=== PATIENT | female | born 1930 | race Caucasian/White ===

== ENCOUNTER 2017-10-21 15:10 | Inpatient (IN) | payer MEDICARE, BC ==
[~2017-10-21] VITALS: Ht 162.6 cm; Wt 48.1 kg
[~2017-10-21 15:10] MED LIST: ASPI-495 PO; CLOP75TA15 PO; ESCI10TA PO; FEXO180T PO; FLUO0.2535 PO; IRBE75TA11 PO; LANS30CA54 PO; LEVE250T2 PO; LEVO50TA PO; POTA10CA14 PO; SIMV20TA6 PO; SOTA80TA PO
--- NOTE | 2017-10-21 15:11 | NUR ---
[id number] FROM HOME: SOB, COPD EXACERBATION, HYPOXIA. 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 PATIENT IS A/O X1. PATIENT PLACED ON NON-REBREATHER MASK, 15L/MIN. NAD, VITALS STABLE. SAFETY AND COMFORT MEASURES IN PLACE. AWAITING MD ORDERS.
--- NOTE | 2017-10-21 15:15 | NUR ---
NEW IV STARTED ON LAC, 20 G.
--- NOTE | 2017-10-21 15:20 | NUR ---
SECOND IV STARTED ON RFA, 20 G.
[2017-10-21] MEDS ORDERED: POTA10TA15 PO (15:24)
[2017-10-21] MEDS ORDERED: FURO20TA4 PO (15:24)
[2017-10-21] MEDS ORDERED: BUDE0.253 IH (15:24)
[2017-10-21 16:12] LABS: MONOCYTES # (AUTO) 0.8 /CMM (0.1-1.30); NEUTROPHILS # (AUTO) 7.5 /CMM (1.8-8.9)
[2017-10-21 16:15] LABS: BASOPHILS # (AUTO) 0.1 /CMM (0.0-0.2); BASOPHILS % (AUTO) 0.5 % (0.0-2.0); EOSINOPHILS # (AUTO) 0.9 /CMM (0.0-0.7); EOSINOPHILS % (AUTO) 9.1 % (0.0-6.0); HEMATOCRIT 45 % (33-45); HEMOGLOBIN 15.5 g/dL (11.5-14.8); LYMPHOCYTES # (AUTO) 0.7 /CMM (0.8-4.8); LYMPHOCYTES % (AUTO) 6.9 % (20.0-44.0); MEAN CORPUSCULAR HEMOGLOBIN 31 PG (26.0-33.0); MEAN CORPUSCULAR HGB CONC 34 g/dl (31.0-36.0); MEAN CORPUSCULAR VOLUME 89 fL (82-100); MONOCYTES % (AUTO) 7.9 % (2.0-12.0); NEUTROPHILS % (AUTO) 75.6 % (43.0-81.0); PLATELET COUNT (AUTO) 179 /CMM (150-450); RDW COEFFICIENT OF VARIATION 13.7 (11.5-15.0); RED BLOOD CELL COUNT(AUTO) 5.05 MIL/uL (4.0-5.2)
[2017-10-21 16:20] LABS: CALCIUM, SERUM 9.6 mg/dL (8.5-10.1); CARBON DIOXIDE 28 mmol/L (21-32); CHLORIDE 96 mmol/L (98-107); GLUCOSE 148 mg/dL (74-106); POTASSIUM 4.5 mmol/L (3.5-5.1); SODIUM SERUM 129 mmol/L (136-145); UREA NITROGEN, BLOOD 22 mg/dL (7-18)
[2017-10-21 16:24] LABS: INR 1.06 (0.85-1.15)
--- NOTE | 2017-10-21 16:30 | NUR ---
PT PUT ON NASAL CANNULA 2LPM. VSS, SATURATING 98%, TOLERATING WELL.
[2017-10-21 16:38] LABS: ALANINE AMINOTRANSFERASE 19 U/L (12-78); ALBUMIN 2.8 g/dL (3.4-5.0); ALKALINE PHOSPHATASE 232 U/L (46-116); ASPARTATE AMINOTRANSFERASE 38 U/L (15-37); B-TYPE NATRIURETIC PEPTIDE 4594 PG/ML (0-125); BILIRUBIN,DIRECT 0.1 mg/dL (0.0-0.2); BILIRUBIN,TOTAL 0.4 mg/dL (0.2-1.0); TOTAL PROTEIN, SERUM 7.6 g/dL (6.4-8.2)
[2017-10-21 16:45] LABS: TROPONIN I 0.019 ng/mL (0.00-0.056)
--- NOTE | 2017-10-21 16:45 | NUR ---
CALLED NURSING SUP. FOR SARITHA BED
--- NOTE | 2017-10-21 16:54 | NUR ---
URINE OBTAINED AND SENT TO LAB.
[2017-10-21] MEDS ORDERED: FUROSEMIDE 40 MG/4 ML VIAL ONE (16:56)
[2017-10-21] MEDS ORDERED: ASPIRIN 325 MG TABLET ONE (16:57)
[2017-10-21] MEDS ORDERED: ASPIRIN 325 MG TABLET PO ONE (17:00)
[2017-10-21] MEDS ORDERED: FUROSEMIDE 40 MG/4 ML VIAL IV ONE (17:00)
--- NOTE | 2017-10-21 17:04 | NUR ---
OSCAR PAGED, SKI BASE TRIMMER
--- NOTE | 2017-10-21 17:10 | NUR ---
PATIENT HAS TAKEN ASPIRIN THIS MORNING. MD INFORMED, STATED TO CANCEL ORDER OF ASPIRIN.
[2017-10-21 17:14] LABS: APPEARANCE,URINE Clear (CLEAR); BILIRUBIN,URINE Negative (NEGATIVE); BLOOD, URINE Large Ery/uL (NEGATIVE); COLOR,URINE Yellow (YELLOW); KETONES,URINE Negative (NEGATIVE); NITRITE, URINE Negative (NEGATIVE); PROTEIN,URINE 100 mg/dl (NEGATIVE); UGLUCOSE Negative (NEGATIVE); UROBILINOGEN,URINE 0.2 EU/dL (0.2)
[2017-10-21 17:15] LABS: LEUKOCYTE ESTERASE ,URINE Negative (NEGATIVE)
[2017-10-21 17:31] LABS: BACTERIA,URINE Few /HPF (None Seen); RBC,URINE 21-50 /HPF (0-2); SQUAMOUS EPITHELIAL CELL,UR Few /HPF (None Seen); WBC,URINE NONE SEEN /HPF (0-3)
[2017-10-21] MEDS ORDERED: Z GUARD REMEDY 2 OZ OINT TP PRN (18:00)
[2017-10-21] MEDS ORDERED: ZOLPIDEM TARTRATE 5 MG TABLET PO PRN (18:00)
[2017-10-21] MEDS ORDERED: SIMVASTATIN 20 MG TABLET PO SCH (18:00)
[2017-10-21] MEDS ORDERED: POTASSIUM CHLORIDE 10 MEQ TABLET.SA PO SCH (18:00)
[2017-10-21] MEDS ORDERED: MAG HYDROX/AL HYDROX/SIMETH 30 ML UDC PO PRN (18:00)
[2017-10-21] MEDS ORDERED: BUDESONIDE RESPULE INH 0.25 MG/2 ML AMPUL.NEB IH PRN (18:00)
[2017-10-21] MEDS ORDERED: HYDROCODONE/APAP 5/325MG 1 EACH TABLET PO PRN (18:00)
[2017-10-21] MEDS ORDERED: ONDANSETRON HCL/PF 4 MG/2 ML VIAL IVP PRN (18:00)
[2017-10-21] MEDS ORDERED: ACETAMINOPHEN 325 MG TABLET PO PRN (18:00)
[2017-10-21] MEDS ORDERED: MAGNESIUM HYDROXIDE 30 ML UDC PO PRN (18:00)
--- NOTE | 2017-10-21 18:00 | NUR ---
RN NOTES RECEIVED PATIENT FROM ER. PATIENT AWAKE RESPONSIVE, OPENS EYE, NON VERBAL. A/OX1. NO ACUTE DISTRESS, NO SOB NOTED. VS WNL; LA=051/67, T=97.3, R=20, SPO2 98% ON 2LPM O2 VIA NC, ON TELEMONITOR AFIB HR=94. IV SITE INTACT AND PATENT. KEPT PATIENT SAFE AND COMFORTABLE. FAMILY AT BEDSIDE. BED IN LOW/LOCKED POSITION, SIDERAILS UPX2, SEMIFOWLER'S, CALL LIGHT IN REACH. WILL ENDORSED TO NIGHT RN FOR JONAS.
[2017-10-21 18:13] LABS: BAND % (MANUAL) 3 % (0.0-5.0); EOSINOPHILS % (MANUAL) 8 % (0-4); LYMPHOCYTES % (MANUAL) 8 % (16-48); MONOCYTES % (MANUAL) 6 % (0-11.0); NEUTROPHILS % (MANUAL) 75 (42-76)
--- NOTE | 2017-10-21 18:15 | NUR ---
RN NOTES PER FAMILY REQUEST, GIVE PM MEDICATIONS LATER IN THE EVENING WHEN THEY FEED THEM DINNER. WILL INFORM NIGHT RN.
[2017-10-21] MEDS ORDERED: POTASSIUM CHLORIDE 20 MEQ POWDER PACKET PO SCH ×2 (19:00→20:00)
--- NOTE | 2017-10-21 19:00 | NUR ---
RN CLOSING NOTES PATIENT IN BED RESTING. FAMILY AT BEDSIDE. NO ACUTE DISTRESS, NO SOB NOTED. ALL NEEDS ATTENDED AND PROVIDED. KEPT PATIENT SAFE AND COMFORTABLE. BED IN LOW/LOCKED POSITION, SIDERAILS UPX2, CALL LIGHT IN REACH. ENDORSED TO NIGHT RN FOR JONAS.
--- NOTE | 2017-10-21 19:30 | NUR ---
TELE OPENING NOTES RECEIVED REPORT FROM BENNETT PATTERSON. PATIENT A/O X1, NON-VERBAL. BREATHING EVEN & UNLABORED, TOLERATING O2 2L VIA NC. NO S/S OF RESPIRATORY DISTRESS. PULSES PRESENT. ON TELE W/ A-FIB & PVC. SKIN WARM, DRY & INTACT W/ NO SKIN ISSUES IDENTIFIED. LEFT AC IV #20 INTACT & PATENT W/ DRESSING CDI, SALINE LOCKED. NO S/S OF PAIN OR DISCOMFORT @ THIS TIME. PATIENT RESTING COMFORTABLY IN BED. SAFETY MEASURES IN PLACE W/ SIDE RAILS UP, BED LOCKED & IN LOWEST POSITION & BED ALARM ON. FAMILY & PRIVATE CAREGIVER @ BEDSIDE. ALL ADMISSION ORDERS REVIEWED. WILL CONTINUE TO MONITOR.
[2017-10-21 20:00] VITALS: BP 94/67
[2017-10-21] MEDS ORDERED: POTASSIUM CHLORIDE 20 MEQ POWDER PACKET ONE (20:06)
[2017-10-21] MEDS ORDERED: SIMVASTATIN 20 MG TABLET ONE (20:06)
[2017-10-21] MEDS ORDERED: SOTALOL HCL 80 MG TABLET ONE (20:06)
[2017-10-21] MEDS ORDERED: LEVETIRACETAM (250 MG) 250 MG TABLET PO ONE (20:06)
[2017-10-21] MEDS: SIMVASTATIN 20 MG TABLET PO SCH (20:14)
[2017-10-21] MEDS: LEVETIRACETAM (250 MG) 250 MG TABLET PO SCH (20:14)
[2017-10-21] MEDS: SOTALOL HCL 80 MG TABLET PO SCH (20:17)
--- NOTE | 2017-10-21 20:50 | NUR ---
RN NOTES ASKED DR NORRIS FOR NEW ORDER TO INSERT PALOMINO CATH IN ORDER TO MONITOR STRICT I&O. PER , OKAY TO INSERT. NEW ORDER CARRIED OUT.
--- NOTE | 2017-10-21 21:28 | NUR ---
RN NOTE RECEIVED CALL FROM PATIENT'S DAUGHTER, LEIDY, CLARIFYING THE PATIENT'S CODE STATUS PER THE PATIENT'S ADVANCE DIRECTIVE. ACCORDING TO DTR, LEIDY, PATIENT IS OKAY TO BE RESUSCITATED HOWEVER NO RESPIRATORS. READ BACK TO LEIDY, CONFIRMED BY PRIMARY NURSE. REMINDED LEIDY TO BRING A COPY OF THE ADVANCE DIRECTIVE IN AM, VERBALIZED UNDERSTANDING. DR. NORRIS MADE AWARE. CODE STATUS ORDERED.
--- NOTE | 2017-10-21 22:00 | NUR ---
RN NOTES SUCCESSFULLY INSERTED PALOMINO CATH 16FR. PATIENT TOLERATED WELL.
[2017-10-22] VITALS: BP 137/83
[2017-10-22 04:00] VITALS: BP 100/63
[2017-10-22 06:42] LABS: BASOPHILS % (AUTO) 0.3 % (0.0-2.0); EOSINOPHILS # (AUTO) 0.3 /CMM (0.0-0.7); HEMATOCRIT 40 % (33-45); HEMOGLOBIN 13.5 g/dL (11.5-14.8); LYMPHOCYTES # (AUTO) 0.8 /CMM (0.8-4.8); LYMPHOCYTES % (AUTO) 14.7 % (20.0-44.0); MEAN CORPUSCULAR HEMOGLOBIN 30 PG (26.0-33.0); MEAN CORPUSCULAR HGB CONC 34 g/dl (31.0-36.0); MEAN CORPUSCULAR VOLUME 90 fL (82-100); MONOCYTES # (AUTO) 0.8 /CMM (0.1-1.30); NEUTROPHILS # (AUTO) 3.5 /CMM (1.8-8.9); PLATELET COUNT (AUTO) 185 /CMM (150-450); RED BLOOD CELL COUNT(AUTO) 4.45 MIL/uL (4.0-5.2); WHITE BLOOD COUNT (AUTO) 5.4 K/uL (4.3-11.0)
[2017-10-22 07:04] LABS: CALCIUM, SERUM 9.2 mg/dL (8.5-10.1); CARBON DIOXIDE 27 mmol/L (21-32); CHLORIDE 97 mmol/L (98-107); CREATININE 0.8 mg/dL (0.6-1.3); GLUCOSE 92 mg/dL (74-106); PHOSPHORUS 2.8 mg/dL (2.5-4.9); POTASSIUM 4.4 mmol/L (3.5-5.1); SODIUM SERUM 132 mmol/L (136-145); UREA NITROGEN, BLOOD 24 mg/dL (7-18)
--- NOTE | 2017-10-22 07:18 | NUR ---
VOCATIONAL CASE MANAGER NOTES RECEIVED PT ON BED SLEEPING WITH CAREGIVER ALERT ORIENTEDX2. ON NC 2L SATURATING WELL. NO SIGN OF RESPI DISTRESS. ON TELE MONITOR A FIB. IV ACCESS LAC AND LFA #20 SL NO REDNESS OR PAIN. HEAD OF BED ELEVATED. SIDE RAILS UP. CALL LIGHT IS PLACED WITHIN REACH. WILL CONTINUE TO MONITOR PT CLOSELY.
[2017-10-22 07:41] LABS: CHOLESTEROL 94 mg/dL (<200); HDL CHOLESTEROL 34 mg/dL (40-60); LDL 45 mg/dL (0-99); TRIGLYCERIDES 80 mg/dL (30-150)
[2017-10-22 08:00] VITALS: BP 105/60
[2017-10-22] MEDS: FUROSEMIDE 40 MG/4 ML VIAL IV SCH ×2 (08:26→17:15)
[2017-10-22] MEDS: LEVOTHYROXINE SODIUM 50 MCG TABLET PO SCH (08:27)
[2017-10-22] MEDS: PANTOPRAZOLE 40 MG TABLET.DR PO SCH (08:27)
[2017-10-22] MEDS: ASPIRIN EC 81 MG TABLET.DR PO SCH (08:27)
[2017-10-22] MEDS: LEVETIRACETAM (250 MG) 250 MG TABLET PO SCH ×2 (08:27→17:17)
[2017-10-22] MEDS: SOTALOL HCL 80 MG TABLET PO SCH ×2 (08:30→17:17)
[2017-10-22] MEDS: CLOPIDOGREL BISULFATE 75 MG TABLET PO SCH (08:30)
[2017-10-22] MEDS ORDERED: LEVETIRACETAM (250 MG) 250 MG TABLET PO SCH (09:00)
[2017-10-22] MEDS ORDERED: PNEUMOCOCCAL 23-VAL P-SAC VAC 0.5 ML VIAL SQ ONE (09:00)
[2017-10-22] MEDS ORDERED: SOTALOL HCL 80 MG TABLET PO SCH (09:00)
[2017-10-22 09:55] LABS: EOSINOPHILS % (MANUAL) 5 % (0-4); LYMPHOCYTES % (MANUAL) 10 % (16-48); MONOCYTES % (MANUAL) 13 % (0-11.0); NEUTROPHILS % (MANUAL) 72 (42-76)
--- NOTE | 2017-10-22 10:24 | NUR ---
MS RN NOTES PT GIVEN PNEUMONIA VACCINE PER DAUGHTERS REQUEST
[2017-10-22 16:00] VITALS: BP 99/63
--- NOTE | 2017-10-22 16:00 | NUR ---
MS RN NOTES PER DOCTOR ANDONIAN, TRY TO TITRATE OXYGEN IF TOLERATED BY THE PT.
[2017-10-22] MEDS: POTASSIUM CHLORIDE 10 MEQ TABLET.SA PO SCH (17:16)
[2017-10-22] MEDS: SIMVASTATIN 20 MG TABLET PO SCH (17:16)
--- NOTE | 2017-10-22 18:50 | NUR ---
MS RN NOTES NO ACUTE CHANGES NOTED DURING THE SHIFT. DUE MEDS GIVEN. PROVIDED COMFORT AND SAFETY. WILL ENDORSED TO THE PM NURSE FOR JONAS.
--- NOTE | 2017-10-22 19:50 | NUR ---
MS RN NOTE: PATIENT RESTING IN BED, NO ACUTE DISTRESS NOTED, CAREGIVER AT BEDSIDE. BREATHING EVEN AND UNLABORED, NO SOB NOTED. IV TO LAC AND LFA IN PLACE. PALOMINO CATHETER IN PLACE, DRAINING CLEAR YELLOW URINE. BED LOCKED AND IN LOWEST POSITION, CALL LIGHT IN REACH. WILL CONTINUE TO MONITOR.
[2017-10-22 20:00] VITALS: BP 101/54
--- NOTE | 2017-10-22 21:00 | NUR ---
MS RN NOTE: PATIENT TO BE TITRATE OFF OXYGEN TOLERATED. PATIENT CURRENTLY AT 2 LPM VIA NC WITH 02 SAT AT 96%. DECREASED OXYGEN TO 1 LPM. CG AT BEDSIDE, INFORMED TO MONITOR FOR ANY DISTRESS AND INFORM NURSE IF ANY DISTRESS OR SOB NOTED. WILL CONTINUE TO MONITOR
--- NOTE | 2017-10-23 00:30 | NUR ---
MS RN NOTE: PATIENT O2 SAT 94% ON OXYGEN 1 LPM VIA NC, NO ACUTE DISTRESS NOTED. BREATHING EVEN AND UNLABORED. PATIENT TAKEN OFF OXYGEN THIS TIME AND WILL CONTINUE TO MONITOR O2 SAT.
--- NOTE | 2017-10-23 04:30 | NUR ---
MS RN NOTE: PATIENT O2 SAT 92% ON RA, BREATHING EVEN AND UNLABORED, NO SOB NOTED. CONTINUE TO MONITOR.
--- NOTE | 2017-10-23 06:20 | NUR ---
MS RN NOTE: PATIENT RESTING IN BED, NO ACUTE DISTRESS NOTED, CAREGIVER AT BEDSIDE. BREATHING EVEN AND UNLABORED, NO SOB NOTED. 02 SAT STABLE ON RA AT 92%. IV TO LAC AND LFA IN PLACE. PALOMINO CATHETER IN PLACE, DRAINED 625ML CLEAR YELLOW URINE. BED LOCKED AND IN LOWEST POSITION, CALL LIGHT IN REACH. WILL CONTINUE TO MONITOR.
[2017-10-23 06:55] LABS: CALCIUM, SERUM 9.6 mg/dL (8.5-10.1); CARBON DIOXIDE 31 mmol/L (21-32); CHLORIDE 97 mmol/L (98-107); GLUCOSE 92 mg/dL (74-106); POTASSIUM 4.5 mmol/L (3.5-5.1); SODIUM SERUM 133 mmol/L (136-145); UREA NITROGEN, BLOOD 28 mg/dL (7-18)
--- NOTE | 2017-10-23 07:12 | NUR ---
MS RN NOTES RECEIVED PT ON BED SLEEPING. ALERT ORIENTED X1. ON ROOM AIR SATURATING AROUND 92%. IV ACCESS ON LAC AND LFA 320 PATENT NO SIGN OF PAIN OR REDNESS. NO SIGN OF RESPIRATORY DISTRESS. HEAD OF BED ELEVATED. SIDE RAILS UP. CALL LIGHT IS WITHIN REACH. WILL CONTINUE TO MONITOR PT CLOSELY.
[2017-10-23 08:00] VITALS: BP 116/71
[2017-10-23 08:01] LABS: BASOPHILS % (AUTO) 0.3 % (0.0-2.0); EOSINOPHILS # (AUTO) 0.4 /CMM (0.0-0.7); EOSINOPHILS % (AUTO) 5.7 % (0.0-6.0); HEMATOCRIT 41 % (33-45); HEMOGLOBIN 13.8 g/dL (11.5-14.8); LYMPHOCYTES % (AUTO) 15.5 % (20.0-44.0); MEAN CORPUSCULAR HEMOGLOBIN 30 PG (26.0-33.0); MEAN CORPUSCULAR HGB CONC 33 g/dl (31.0-36.0); MEAN CORPUSCULAR VOLUME 91 fL (82-100); MONOCYTES % (AUTO) 15.4 % (2.0-12.0); NEUTROPHILS % (AUTO) 63.1 % (43.0-81.0); PLATELET COUNT (AUTO) 155 /CMM (150-450); RDW COEFFICIENT OF VARIATION 15.1 (11.5-15.0); RED BLOOD CELL COUNT(AUTO) 4.57 MIL/uL (4.0-5.2); WHITE BLOOD COUNT (AUTO) 6.3 K/uL (4.3-11.0)
[2017-10-23] MEDS: LEVOTHYROXINE SODIUM 50 MCG TABLET PO SCH (08:03)
[2017-10-23] MEDS: SOTALOL HCL 80 MG TABLET PO SCH ×2 (08:03→17:30)
[2017-10-23] MEDS: ASPIRIN EC 81 MG TABLET.DR PO SCH (08:03)
[2017-10-23] MEDS: CLOPIDOGREL BISULFATE 75 MG TABLET PO SCH (08:03)
[2017-10-23] MEDS: FUROSEMIDE 40 MG/4 ML VIAL IV SCH ×2 (08:04→17:30)
[2017-10-23] MEDS: PANTOPRAZOLE 40 MG TABLET.DR PO SCH (08:04)
[2017-10-23] MEDS: LEVETIRACETAM (250 MG) 250 MG TABLET PO SCH ×2 (08:04→17:28)
[2017-10-23 12:02] LABS: BAND % (MANUAL) 1 % (0.0-5.0); EOSINOPHILS % (MANUAL) 1 % (0-4); LYMPHOCYTES % (MANUAL) 8 % (16-48); MONOCYTES % (MANUAL) 8 % (0-11.0); NEUTROPHILS % (MANUAL) 82 (42-76)
[2017-10-23 16:00] VITALS: BP 103/74
[2017-10-23] MEDS: SIMVASTATIN 20 MG TABLET PO SCH (17:28)
[2017-10-23] MEDS: POTASSIUM CHLORIDE 10 MEQ TABLET.SA PO SCH (17:28)
--- NOTE | 2017-10-23 19:01 | NUR ---
MS RN NOTES NO ACUTE CHANGES NOTED DURING THE SHIFT. DUE MEDS GIVEN. PROVIDED COMFORT AND SAFETY. WILL ENDORSE TO THE PM NURSE FOR JONAS.
[2017-10-23 20:00] VITALS: BP 151/64
[2017-10-23 22:58] VITALS: BP 103/74
[2017-10-24 04:12] VITALS: BP 151/64
--- NOTE | 2017-10-24 04:47 | NUR ---
REMAINED IN BED THIS 12 HOURS PRIVATE FISHING ROD ASSEMBLER AT THE BEDS SIDE THROU THE NIGHT. REPOSITIONES Q3 HRS. SLEPT THRU THE NIGHT. SWALLOWS W/O PROBLEMS WHEN WATER OFFERED NO SOB THHIS 12 HOURSSATS WHEN ASLEEP AT 92% ROOM AIR HOB P 30 DEGREES
[2017-10-24 06:38] LABS: CALCIUM, SERUM 9.6 mg/dL (8.5-10.1); CARBON DIOXIDE 29 mmol/L (21-32); CHLORIDE 96 mmol/L (98-107); GLUCOSE 94 mg/dL (74-106); POTASSIUM 3.7 mmol/L (3.5-5.1); SODIUM SERUM 134 mmol/L (136-145); UREA NITROGEN, BLOOD 27 mg/dL (7-18)
[2017-10-24 06:41] LABS: BASOPHILS % (AUTO) 0.5 % (0.0-2.0); EOSINOPHILS # (AUTO) 0.4 /CMM (0.0-0.7); EOSINOPHILS % (AUTO) 6.6 % (0.0-6.0); HEMATOCRIT 43 % (33-45); HEMOGLOBIN 14.8 g/dL (11.5-14.8); LYMPHOCYTES % (AUTO) 14.3 % (20.0-44.0); MEAN CORPUSCULAR HEMOGLOBIN 31 PG (26.0-33.0); MEAN CORPUSCULAR HGB CONC 35 g/dl (31.0-36.0); MEAN CORPUSCULAR VOLUME 90 fL (82-100); MONOCYTES # (AUTO) 0.9 /CMM (0.1-1.30); MONOCYTES % (AUTO) 13.2 % (2.0-12.0); NEUTROPHILS # (AUTO) 4.4 /CMM (1.8-8.9); NEUTROPHILS % (AUTO) 65.4 % (43.0-81.0); PLATELET COUNT (AUTO) 187 /CMM (150-450); RDW COEFFICIENT OF VARIATION 14.8 (11.5-15.0); RED BLOOD CELL COUNT(AUTO) 4.77 MIL/uL (4.0-5.2); WHITE BLOOD COUNT (AUTO) 6.7 K/uL (4.3-11.0)
--- NOTE | 2017-10-24 07:10 | NUR ---
RN INITIAL NOTES: REC'D PT AWAKE ON BED, NOT IN ANY DISTRESS, A/O X 1. ON ROOM AIR, NO SOB NOTED. HAS 2 IV ACCESS: L AC G20 AND R FA G20, BOTH FLUSHING WELL, NO S/SX OF INFECTION/INFILTRATION NOTED. HAS FC PATENT & INTACT. HAS CAREGIVER AT BEDSIDE. PROVIDED COMFORT & SAFETY MEASURES. BED KEPT LOW & IN LOCKED POS. CALL LIGHT PLACED W/IN REACH. WILL CONTINUE TO MONITOR & ATTEND PT NEEDS.
--- NOTE | 2017-10-24 07:40 | NUR ---
RN NOTES: CLEARED PINK ALERTS ON EMAR FOR PT'S SAFETY. MEDICATIONS NON ADMINISTERED.
[2017-10-24 08:00] VITALS: BP 100/56
[2017-10-24] MEDS: CLOPIDOGREL BISULFATE 75 MG TABLET PO SCH (08:11)
[2017-10-24 08:13] VITALS: BP 100/56
[2017-10-24] MEDS: PANTOPRAZOLE 40 MG TABLET.DR PO SCH (08:13)
[2017-10-24] MEDS: LEVOTHYROXINE SODIUM 50 MCG TABLET PO SCH (08:13)
[2017-10-24] MEDS: SOTALOL HCL 80 MG TABLET PO SCH (08:13)
[2017-10-24] MEDS: FUROSEMIDE 40 MG/4 ML VIAL IV SCH (08:14)
[2017-10-24] MEDS: ASPIRIN EC 81 MG TABLET.DR PO SCH (08:14)
[2017-10-24] MEDS: LEVETIRACETAM (250 MG) 250 MG TABLET PO SCH (08:14)
--- NOTE | 2017-10-24 15:40 | NUR ---
SCIENTIST/ENGINEER NOTES: PT DC'D TO HOME W/ HOME HEALTH CARE ORDERED. DC DOCUMENTS EXPLAINED AND PROVIDED TO THE PT'S DTR W/ VERBALIZATION OF UNDERSTANDING. IV LINE ACCESS REMOVED, PRESSURE DRESSING APPLIED, NO SIGN OF INFECTION NOTED. FC REMOVED REQUESTED BY DTR AND ORDERED BY DISPENSING LEAD. SKIN IS INTACT. PER DTR, SHE HAS ALL THE BELONGINGS WITH THEM. CHU RADHA WAS ABLE TO SPEAK W/ THE DTR. PT LEFT IN STABLE CONDITION VIA GURNEY, PICKED UP BY [facility] EMT. NO CONCERN/S IDENTIFIED AT THIS TIME.
== END 2017-10-24 15:27 | disposition home or self-care (01) | DRG 291 ==
LOC: ER 15:11 → TELE-TD 17:25 → TELE1 18:03 → MEDSG1 10-22 08:23
PROVIDERS: ADMIT Family Medicine; ATTEND Family Medicine
DX: I11.0 Hypertensive heart disease with heart failure (principal); J96.00 Acute respiratory failure, unspecified whether with hypoxia or hypercapnia; E87.2 Acidosis; E44.0 Moderate protein-calorie malnutrition; D68.59 Other primary thrombophilia; E87.1 Hypo-osmolality and hyponatremia; E86.1 Hypovolemia; I69.351 Hemiplegia and hemiparesis following cerebral infarction affecting right dominant side; I48.91 Unspecified atrial fibrillation; E03.9 Hypothyroidism, unspecified; E78.5 Hyperlipidemia, unspecified; I25.10 Atherosclerotic heart disease of native coronary artery without angina pectoris; I50.9 Heart failure, unspecified; Z95.1 Presence of aortocoronary bypass graft; Z90.710 Acquired absence of both cervix and uterus; Z87.891 Personal history of nicotine dependence; Z87.11 Personal history of peptic ulcer disease; Z79.899 Other long term (current) drug therapy; Z79.82 Long term (current) use of aspirin; Z88.1 Allergy status to other antibiotic agents; Z88.8 Allergy status to other drugs, medicaments and biological substances; Z85.42 Personal history of malignant neoplasm of other parts of uterus; Z82.49 Family history of ischemic heart disease and other diseases of the circulatory system; Z80.9 Family history of malignant neoplasm, unspecified; R73.9 Hyperglycemia, unspecified; Z66 Do not resuscitate; I50.33 Acute on chronic diastolic (congestive) heart failure; R06.03 Acute respiratory distress
CPT/HCPCS: 36415; 71045-TC; 80048-TC; 80061-TC; 80076-TC; 81000-TC; 83605-TC; 83735-TC; 83880; 84100-TC; 84484-TC; 85025-TC; 85730-TC; 87040-TC; 87081-TC; 87086-TC; 87186-TC; 87400; 90732; 93307-TC; A4606; J1940; Z7610

== ENCOUNTER 2017-11-25 21:27 | Inpatient (IN) | payer MEDICARE, BC ==
[~2017-11-25] VITALS: Ht 144.8 cm; Wt 54.9 kg
[~2017-11-25 21:27] MED LIST changes: +BUDE0.253 IH; -ESCI10TA PO; -FEXO180T PO; -FLUO0.2535 PO; +FURO20TA4 PO; -IRBE75TA11 PO; -POTA10CA14 PO; +POTA10TA15 PO
[2017-11-25] MEDS ORDERED: Magnesium 1GM/D5W 100ML PREMIX 200 ML IV ONE ×2 (21:29→22:22)
[2017-11-25] MEDS ORDERED: IPRATROPIUM NEB FS 0.5 MG/2.5 ML AMPUL.NEB NEB ONE (21:30)
[2017-11-25] MEDS ORDERED: ALBUTEROL FS 2.5 MG/3 ML VIAL.NEB NEB ONE (21:30)
[2017-11-25] MEDS ORDERED: methylPREDNISolone SOD SUCC 125 MG/2ML VIAL IV ONE (21:30)
[2017-11-25 21:36] VITALS: BP 107/70
[2017-11-25 21:42] LABS: BASOPHILS % (AUTO) 0.3 % (0.0-2.0); EOSINOPHILS % (AUTO) 0.1 % (0.0-6.0); HEMATOCRIT 42 % (33-45); HEMOGLOBIN 14.3 g/dL (11.5-14.8); LYMPHOCYTES # (AUTO) 0.9 /CMM (0.8-4.8); LYMPHOCYTES % (AUTO) 15.4 % (20.0-44.0); MEAN CORPUSCULAR HEMOGLOBIN 30 PG (26.0-33.0); MEAN CORPUSCULAR HGB CONC 34 g/dl (31.0-36.0); MEAN CORPUSCULAR VOLUME 88 fL (82-100); MONOCYTES # (AUTO) 1.1 /CMM (0.1-1.30); MONOCYTES % (AUTO) 17.9 % (2.0-12.0); NEUTROPHILS # (AUTO) 3.9 /CMM (1.8-8.9); NEUTROPHILS % (AUTO) 66.3 % (43.0-81.0); PLATELET COUNT (AUTO) 150 /CMM (150-450); RDW COEFFICIENT OF VARIATION 15.4 (11.5-15.0); RED BLOOD CELL COUNT(AUTO) 4.78 MIL/uL (4.0-5.2); WHITE BLOOD COUNT (AUTO) 5.9 K/uL (4.3-11.0)
[2017-11-25 22:01] LABS: APPEARANCE,URINE CLOUDY (CLEAR); BILIRUBIN,URINE NEGATIVE (NEGATIVE); BLOOD, URINE 2+ Ery/uL (NEGATIVE); COLOR,URINE YELLOW (YELLOW); KETONES,URINE NEGATIVE (NEGATIVE); LEUKOCYTE ESTERASE ,URINE NEGATIVE (NEGATIVE); NITRITE, URINE NEGATIVE (NEGATIVE); PH,URINE 5.5 (5.0-8.0); PROTEIN,URINE TRACE mg/dl (NEGATIVE); UGLUCOSE NEGATIVE (NEGATIVE); UROBILINOGEN,URINE 0.2 EU/dL (0.2)
[2017-11-25 22:04] LABS: CALCIUM, SERUM 9.8 mg/dL (8.5-10.1); CARBON DIOXIDE 29 mmol/L (21-32); CHLORIDE 90 mmol/L (98-107); CREATININE 0.9 mg/dL (0.6-1.3); GLUCOSE 132 mg/dL (74-106); SODIUM SERUM 128 mmol/L (136-145); UREA NITROGEN, BLOOD 22 mg/dL (7-18)
[2017-11-25 22:07] LABS: TROPONIN I 5.129 ng/mL (0.00-0.056)
[2017-11-25 22:09] LABS: ALANINE AMINOTRANSFERASE 22 U/L (12-78); ALBUMIN 2.7 g/dL (3.4-5.0); ALKALINE PHOSPHATASE 186 U/L (46-116); ASPARTATE AMINOTRANSFERASE 55 U/L (15-37); B-TYPE NATRIURETIC PEPTIDE 27426 PG/ML (0-125); BILIRUBIN,DIRECT 0.2 mg/dL (0.0-0.2); BILIRUBIN,TOTAL 0.6 mg/dL (0.2-1.0); TOTAL PROTEIN, SERUM 7.8 g/dL (6.4-8.2)
[2017-11-25 22:09] LABS: BACTERIA,URINE Moderate /HPF (None Seen); SQUAMOUS EPITHELIAL CELL,UR Moderate /HPF (None Seen)
[2017-11-25 22:12] LABS: INR 1.07 (0.87-1.13)
[2017-11-25 22:22] LABS: LYMPHOCYTES % (MANUAL) 16 % (16-48); MONOCYTES % (MANUAL) 16 % (0-11.0); NEUTROPHILS % (MANUAL) 68 (42-76)
[2017-11-25] MEDS ORDERED: FUROSEMIDE 40 MG/4 ML VIAL ONE (22:22)
[2017-11-25] MEDS ORDERED: ASPIRIN 300 MG/SUPP.RECT RC ONE ×2 (22:23→22:30)
[2017-11-25 22:24] LABS: ABG BASE EXCESS 0.9 mmol/L; ABG OXYGEN SATURATION 98.6 % (92.0-98.5); ABG PCO2 53.8 mmHg (35.0-45.0); ABG PH 7.333 (7.350-7.450); ABG PO2 155.1 mmHg (75.0-100.0); AaDO2 68.2 mmHg; COHb 0.7 % (0.5-1.5); MetHb 0.4 % (0.0-1.5); O2Hb 97.5 % (94.0-97.0); SITE, ABG Right Radial
[2017-11-25] MEDS ORDERED: FUROSEMIDE 40 MG/4 ML VIAL IV ONE (22:30)
[2017-11-25] MEDS ORDERED: ALBUTEROL FS 2.5 MG/3 ML VIAL.NEB ONE (22:46)
[2017-11-25] MEDS ORDERED: IPRATROPIUM NEB FS 0.5 MG/2.5 ML AMPUL.NEB ONE (22:46)
[2017-11-25] MEDS ORDERED: methylPREDNISolone SOD SUCC 125 MG/2ML VIAL ONE (23:32)
[2017-11-26] VITALS (56 sets, daily range): BP systolic 65–155; BP diastolic 15–118
[2017-11-26] MEDS ORDERED: NOREPINEPHRINE 4 MG/4 ML AMPUL IV ONE (00:29)
[2017-11-26] MEDS ORDERED: ENOXAPARIN SODIUM 60 MG/0.6 ML DISP.SYRIN SQ SCH (00:30)
[2017-11-26] MEDS ORDERED: ENOXAPARIN SODIUM 60 MG/0.6 ML DISP.SYRIN SQ ONE (01:03)
[2017-11-26] MEDS ORDERED: NOREPINEPHRINE 16 MG in IV D5W 500 ML IV PRN ×2 (03:00→11:30)
[2017-11-26] MEDS ORDERED: HEPARIN INFUSION/D5W 500 ML IV PRN ×2 (03:00)
[2017-11-26] MEDS ORDERED: ALBUTEROL FS 2.5 MG/0.5 ML VIAL.NEB NEB PRN (03:00)
[2017-11-26] MEDS ORDERED: HEPARIN SODIUM, PORCINE 5000 UNITS/1 ML VIAL IV ONE ×2 (03:00→03:30)
[2017-11-26] MEDS ORDERED: CEFTRIAXONE 1 G VIAL ONE (03:22)
[2017-11-26] MEDS: IV NS 0.9% 1,000 ML IV PRN (03:26)
[2017-11-26] MEDS: CEFTRIAXONE 1 G in IV D5W 50 ML IV SCH (03:27)
[2017-11-26 09:17] LABS: ABG BASE EXCESS 2.3 mmol/L; ABG OXYGEN SATURATION 98.4 % (92.0-98.5); ABG PCO2 40.3 mmHg (35.0-45.0); ABG PH 7.437 (7.350-7.450); ABG PO2 141.2 mmHg (75.0-100.0); AaDO2 97.7 mmHg; COHb 0.3 % (0.5-1.5); MetHb 0.4 % (0.0-1.5); O2Hb 97.7 % (94.0-97.0); SITE, ABG Right Radial; VENT MODE, BG BIPAP 15/5
[2017-11-26 09:21] LABS: BASOPHILS % (AUTO) 0.1 % (0.0-2.0); HEMATOCRIT 44 % (33-45); HEMOGLOBIN 14.6 g/dL (11.5-14.8); LYMPHOCYTES # (AUTO) 0.8 /CMM (0.8-4.8); LYMPHOCYTES % (AUTO) 13.3 % (20.0-44.0); MEAN CORPUSCULAR HEMOGLOBIN 30 PG (26.0-33.0); MEAN CORPUSCULAR HGB CONC 34 g/dl (31.0-36.0); MEAN CORPUSCULAR VOLUME 88 fL (82-100); MONOCYTES # (AUTO) 0.3 /CMM (0.1-1.30); MONOCYTES % (AUTO) 5.1 % (2.0-12.0); NEUTROPHILS # (AUTO) 5.1 /CMM (1.8-8.9); NEUTROPHILS % (AUTO) 81.5 % (43.0-81.0); RDW COEFFICIENT OF VARIATION 15.7 (11.5-15.0); RED BLOOD CELL COUNT(AUTO) 4.93 MIL/uL (4.0-5.2); WHITE BLOOD COUNT (AUTO) 6.3 K/uL (4.3-11.0)
[2017-11-26 09:31] LABS: CALCIUM, SERUM 9.3 mg/dL (8.5-10.1); CARBON DIOXIDE 30 mmol/L (21-32); CHLORIDE 95 mmol/L (98-107); CREATININE 1.1 mg/dL (0.6-1.3); GLUCOSE 143 mg/dL (74-106); POTASSIUM 4.4 mmol/L (3.5-5.1); SODIUM SERUM 134 mmol/L (136-145); UREA NITROGEN, BLOOD 22 mg/dL (7-18)
[2017-11-26 10:32] LABS: PLATELET COUNT (AUTO) 147 /CMM (150-450)
[2017-11-26 12:13] LABS: ABG BASE EXCESS 2.8 mmol/L; ABG OXYGEN SATURATION 96.4 % (92.0-98.5); ABG PCO2 39.1 mmHg (35.0-45.0); ABG PH 7.454 (7.350-7.450); ABG PO2 90.7 mmHg (75.0-100.0); AaDO2 91.7 mmHg; COHb 0.2 % (0.5-1.5); MetHb 0.5 % (0.0-1.5); O2Hb 95.7 % (94.0-97.0); SITE, ABG Right Radial; VENT MODE, BG NASAL CANNULA
[2017-11-26] MEDS: Z GUARD REMEDY 2 OZ OINT TP PRN (17:47)
[2017-11-26] MEDS: ENOXAPARIN SODIUM 60 MG/0.6 ML DISP.SYRIN SQ SCH (21:04)
[2017-11-27] VITALS (14 sets, daily range): BP systolic 109–156; BP diastolic 63–94
[2017-11-27] MEDS: IV NS 0.9% 1,000 ML IV PRN ×2 (00:08→21:45)
[2017-11-27] MEDS: CEFTRIAXONE 1 G in IV D5W 50 ML IV SCH (03:48)
[2017-11-27 05:31] LABS: HEMATOCRIT 37 % (33-45); HEMOGLOBIN 12.6 g/dL (11.5-14.8); LYMPHOCYTES # (AUTO) 0.7 /CMM (0.8-4.8); LYMPHOCYTES % (AUTO) 9.4 % (20.0-44.0); MEAN CORPUSCULAR HEMOGLOBIN 30 PG (26.0-33.0); MEAN CORPUSCULAR HGB CONC 34 g/dl (31.0-36.0); MEAN CORPUSCULAR VOLUME 89 fL (82-100); MONOCYTES # (AUTO) 0.8 /CMM (0.1-1.30); NEUTROPHILS # (AUTO) 5.5 /CMM (1.8-8.9); NEUTROPHILS % (AUTO) 78.6 % (43.0-81.0); PLATELET COUNT (AUTO) 139 /CMM (150-450); RDW COEFFICIENT OF VARIATION 15.4 (11.5-15.0)
[2017-11-27 05:54] LABS: ALANINE AMINOTRANSFERASE 17 U/L (12-78); ALBUMIN 2.2 g/dL (3.4-5.0); ALKALINE PHOSPHATASE 132 U/L (46-116); ASPARTATE AMINOTRANSFERASE 37 U/L (15-37); BILIRUBIN,TOTAL 0.4 mg/dL (0.2-1.0); CALCIUM, SERUM 8.9 mg/dL (8.5-10.1); CARBON DIOXIDE 29 mmol/L (21-32); CHLORIDE 96 mmol/L (98-107); CREATININE 0.9 mg/dL (0.6-1.3); GLUCOSE 90 mg/dL (74-106); MAGNESIUM 2.2 mg/dL (1.8-2.4); POTASSIUM 4.1 mmol/L (3.5-5.1); SODIUM SERUM 132 mmol/L (136-145); TOTAL PROTEIN, SERUM 6.4 g/dL (6.4-8.2); UREA NITROGEN, BLOOD 25 mg/dL (7-18)
[2017-11-27] MEDS ORDERED: CELLULOSE,OXIDIZED 1 EACH EACH MC ONE (06:00)
[2017-11-27 06:04] LABS: TROPONIN I 1.937 ng/mL (0.00-0.056)
[2017-11-27] MEDS ORDERED: CELLULOSE,OXIDIZED 1 EACH EACH MC PRN (06:30)
[2017-11-27] MEDS ORDERED: PANTOPRAZOLE 40 MG TABLET.DR PO ONE (16:30)
[2017-11-27] MEDS: LEVETIRACETAM (250 MG) 250 MG TABLET PO SCH (17:09)
[2017-11-27] MEDS: SIMVASTATIN 20 MG TABLET PO SCH (17:09)
[2017-11-27 18:04] LABS: INR 1.12 (0.87-1.13)
[2017-11-27] MEDS ORDERED: SOTALOL HCL 80 MG TABLET PO SCH (21:00)
[2017-11-27] MEDS: ENOXAPARIN SODIUM 60 MG/0.6 ML DISP.SYRIN SQ SCH (21:00)
[2017-11-27] MEDS: METOPROLOL TARTRATE 25 MG TABLET PO SCH (21:50)
[2017-11-28] VITALS (8 sets, daily range): BP systolic 106–137; BP diastolic 65–86
[2017-11-28] MEDS: CEFTRIAXONE 1 G in IV D5W 50 ML IV SCH (03:49)
[2017-11-28 07:02] LABS: BASOPHILS % (AUTO) 0.1 % (0.0-2.0); EOSINOPHILS % (AUTO) 0.3 % (0.0-6.0); HEMATOCRIT 37 % (33-45); HEMOGLOBIN 12.5 g/dL (11.5-14.8); LYMPHOCYTES # (AUTO) 0.8 /CMM (0.8-4.8); LYMPHOCYTES % (AUTO) 12.7 % (20.0-44.0); MEAN CORPUSCULAR HEMOGLOBIN 30 PG (26.0-33.0); MEAN CORPUSCULAR HGB CONC 34 g/dl (31.0-36.0); MEAN CORPUSCULAR VOLUME 89 fL (82-100); MONOCYTES # (AUTO) 0.9 /CMM (0.1-1.30); MONOCYTES % (AUTO) 14.6 % (2.0-12.0); NEUTROPHILS # (AUTO) 4.3 /CMM (1.8-8.9); NEUTROPHILS % (AUTO) 72.3 % (43.0-81.0); PLATELET COUNT (AUTO) 148 /CMM (150-450); RDW COEFFICIENT OF VARIATION 15.6 (11.5-15.0); RED BLOOD CELL COUNT(AUTO) 4.12 MIL/uL (4.0-5.2)
[2017-11-28 07:14] LABS: CALCIUM, SERUM 9.4 mg/dL (8.5-10.1); CARBON DIOXIDE 29 mmol/L (21-32); CHLORIDE 102 mmol/L (98-107); CREATININE 0.8 mg/dL (0.6-1.3); GLUCOSE 91 mg/dL (74-106); POTASSIUM 3.9 mmol/L (3.5-5.1); SODIUM SERUM 137 mmol/L (136-145); UREA NITROGEN, BLOOD 21 mg/dL (7-18)
[2017-11-28] MEDS: PANTOPRAZOLE 40 MG TABLET.DR PO SCH (07:30)
[2017-11-28] MEDS: LEVOTHYROXINE SODIUM 50 MCG TABLET PO SCH (07:30)
[2017-11-28] MEDS: METOPROLOL TARTRATE 25 MG TABLET PO SCH ×3 (07:54→18:54)
[2017-11-28] MEDS: CLOPIDOGREL BISULFATE 75 MG TABLET PO SCH (07:54)
[2017-11-28] MEDS: ASPIRIN EC 81 MG TABLET.DR PO SCH (07:54)
[2017-11-28] MEDS: LEVETIRACETAM (250 MG) 250 MG TABLET PO SCH ×2 (07:55→17:23)
[2017-11-28 08:10] LABS: INR 1.07 (0.85-1.15)
[2017-11-28] MEDS ORDERED: ANESTHESIA TRAY IN PYXIS 1 EA TRAY MC ONE (09:42)
[2017-11-28] MEDS ORDERED: CLINDAMYCIN 900 MG/6 ML VIAL ONE (10:25)
[2017-11-28] MEDS ORDERED: MEPERIDINE HCL/PF 50 MG/ML DISP.SYRIN ONE (10:54)
[2017-11-28] MEDS: IV NS 0.9% 1,000 ML IV PRN (12:22)
[2017-11-28] MEDS: MORPHINE SULFATE INJ 4 MG/ML DISP.SYRIN IV PRN (14:48)
[2017-11-28] MEDS: SIMVASTATIN 20 MG TABLET PO SCH (17:23)
[2017-11-28] MEDS: ENOXAPARIN SODIUM 30 MG/0.3 ML DISP.SYRIN SQ SCH (21:58)
[2017-11-29] VITALS (7 sets, daily range): BP systolic 101–140; BP diastolic 61–80
[2017-11-29] MEDS: CEFTRIAXONE 1 G in IV D5W 50 ML IV SCH (03:29)
[2017-11-29] MEDS: MORPHINE SULFATE INJ 4 MG/ML DISP.SYRIN IV PRN ×2 (03:32→21:14)
[2017-11-29 07:41] LABS: EOSINOPHILS % (AUTO) 0.1 % (0.0-6.0); HEMATOCRIT 35 % (33-45); HEMOGLOBIN 11.6 g/dL (11.5-14.8); LYMPHOCYTES # (AUTO) 0.6 /CMM (0.8-4.8); LYMPHOCYTES % (AUTO) 8.2 % (20.0-44.0); MEAN CORPUSCULAR HEMOGLOBIN 30 PG (26.0-33.0); MEAN CORPUSCULAR HGB CONC 34 g/dl (31.0-36.0); MEAN CORPUSCULAR VOLUME 90 fL (82-100); MONOCYTES % (AUTO) 13.7 % (2.0-12.0); NEUTROPHILS # (AUTO) 5.9 /CMM (1.8-8.9); PLATELET COUNT (AUTO) 130 /CMM (150-450); RDW COEFFICIENT OF VARIATION 15.5 (11.5-15.0); RED BLOOD CELL COUNT(AUTO) 3.85 MIL/uL (4.0-5.2); WHITE BLOOD COUNT (AUTO) 7.6 K/uL (4.3-11.0)
[2017-11-29 07:57] LABS: CALCIUM, SERUM 8.7 mg/dL (8.5-10.1); CARBON DIOXIDE 26 mmol/L (21-32); CHLORIDE 106 mmol/L (98-107); CREATININE 0.7 mg/dL (0.6-1.3); GLUCOSE 89 mg/dL (74-106); POTASSIUM 4.1 mmol/L (3.5-5.1); SODIUM SERUM 139 mmol/L (136-145); UREA NITROGEN, BLOOD 17 mg/dL (7-18)
[2017-11-29] MEDS: IV NS 0.9% 1,000 ML IV PRN (08:08)
[2017-11-29] MEDS: LEVETIRACETAM (250 MG) 250 MG TABLET PO SCH ×2 (08:09→16:57)
[2017-11-29] MEDS: PANTOPRAZOLE 40 MG TABLET.DR PO SCH (08:09)
[2017-11-29] MEDS: ASPIRIN EC 81 MG TABLET.DR PO SCH (08:09)
[2017-11-29] MEDS: METOPROLOL TARTRATE 25 MG TABLET PO SCH ×2 (08:09→21:14)
[2017-11-29] MEDS: CLOPIDOGREL BISULFATE 75 MG TABLET PO SCH (08:09)
[2017-11-29] MEDS: LEVOTHYROXINE SODIUM 50 MCG TABLET PO SCH (08:09)
[2017-11-29] MEDS: FIBERSOURCE HN 1,000 ML BOTTLE GT PRN (12:10)
[2017-11-29] MEDS: SIMVASTATIN 20 MG TABLET PO SCH (17:00)
[2017-11-29] MEDS: FUROSEMIDE 20 MG TABLET PO SCH (21:14)
[2017-11-29] MEDS: ENOXAPARIN SODIUM 30 MG/0.3 ML DISP.SYRIN SQ SCH (21:15)
[2017-11-29] MEDS ORDERED: METOPROLOL TARTRATE INJ 5 MG/5 ML AMPUL IVP PRN (22:30)
[2017-11-29] MEDS ORDERED: METOPROLOL TARTRATE INJ 5 MG/5 ML AMPUL IVP ONE (22:30)
[2017-11-29] MEDS ORDERED: LORAZEPAM INJ 2 MG/ML VIAL IV PRN (22:30)
[2017-11-30] VITALS: BP 121/82
[2017-11-30] MEDS: CEFTRIAXONE 1 G in IV D5W 50 ML IV SCH (03:20)
[2017-11-30 04:00] VITALS: BP 125/82
[2017-11-30 08:08] VITALS: BP_SYST 110; BP_SYST 122; BP_DIAS 61; BP_DIAS 65
[2017-11-30] MEDS: LEVETIRACETAM (250 MG) 250 MG TABLET PO SCH ×2 (09:15→17:33)
[2017-11-30] MEDS: ASPIRIN EC 81 MG TABLET.DR PO SCH (09:15)
[2017-11-30] MEDS: PANTOPRAZOLE 40 MG/PACK PACK GT SCH (09:15)
[2017-11-30] MEDS: LEVOTHYROXINE SODIUM 50 MCG TABLET PO SCH (09:15)
[2017-11-30] MEDS: FUROSEMIDE 20 MG TABLET PO SCH (09:15)
[2017-11-30] MEDS: CLOPIDOGREL BISULFATE 75 MG TABLET PO SCH (09:15)
[2017-11-30] MEDS: METOPROLOL TARTRATE 25 MG TABLET PO SCH ×2 (09:16→17:33)
[2017-11-30 12:00] VITALS: BP 145/81
[2017-11-30 15:05] LABS: BASOPHILS # (AUTO) 0.1 /CMM (0.0-0.2); BASOPHILS % (AUTO) 0.4 % (0.0-2.0); HEMATOCRIT 40 % (33-45); HEMOGLOBIN 13.2 g/dL (11.5-14.8); LYMPHOCYTES # (AUTO) 0.7 /CMM (0.8-4.8); LYMPHOCYTES % (AUTO) 2.6 % (20.0-44.0); MEAN CORPUSCULAR HEMOGLOBIN 29 PG (26.0-33.0); MEAN CORPUSCULAR HGB CONC 33 g/dl (31.0-36.0); MEAN CORPUSCULAR VOLUME 89 fL (82-100); MONOCYTES # (AUTO) 1.4 /CMM (0.1-1.30); MONOCYTES % (AUTO) 5.4 % (2.0-12.0); NEUTROPHILS # (AUTO) 23.5 /CMM (1.8-8.9); NEUTROPHILS % (AUTO) 91.6 % (43.0-81.0); PLATELET COUNT (AUTO) 149 /CMM (150-450); RDW COEFFICIENT OF VARIATION 15.9 (11.5-15.0); RED BLOOD CELL COUNT(AUTO) 4.48 MIL/uL (4.0-5.2); WHITE BLOOD COUNT (AUTO) 25.7 K/uL (4.3-11.0)
[2017-11-30] MEDS: MEROPENEM 1 G in IV NS 0.9% 100 ML IV SCH (15:27)
[2017-11-30 15:35] LABS: CARBON DIOXIDE 28 mmol/L (21-32); CHLORIDE 107 mmol/L (98-107); CREATININE 0.9 mg/dL (0.6-1.3); GLUCOSE 227 mg/dL (74-106); POTASSIUM 3.4 mmol/L (3.5-5.1); SODIUM SERUM 143 mmol/L (136-145); UREA NITROGEN, BLOOD 19 mg/dL (7-18)
[2017-11-30 16:00] VITALS: BP 126/76
[2017-11-30] MEDS: SIMVASTATIN 20 MG TABLET PO SCH (17:33)
[2017-11-30] MEDS ORDERED: PIPERACILLIN /TAZOBACTAM 3.375 G in IV D5W 50 ML IV SCH (18:00)
[2017-11-30 20:00] VITALS: BP 136/76
[2017-11-30] MEDS: FIBERSOURCE HN 1,000 ML BOTTLE GT PRN (21:40)
[2017-11-30] MEDS: ENOXAPARIN SODIUM 30 MG/0.3 ML DISP.SYRIN SQ SCH (21:42)
[2017-11-30] MEDS ORDERED: POTASSIUM CHLORIDE 20 MEQ TAB.PRT.SR PO ONE (22:30)
[2017-12-01] VITALS: BP 129/74
[2017-12-01] MEDS: METOPROLOL TARTRATE 25 MG TABLET PO SCH ×4 (00:57→18:06)
[2017-12-01] MEDS: MEROPENEM 1 G in IV NS 0.9% 100 ML IV SCH ×2 (02:49→15:00)
[2017-12-01 04:00] VITALS: BP 104/68
[2017-12-01 07:05] LABS: HEMATOCRIT 38 % (33-45); HEMOGLOBIN 12.4 g/dL (11.5-14.8); LYMPHOCYTES # (AUTO) 0.8 /CMM (0.8-4.8); LYMPHOCYTES % (AUTO) 3.4 % (20.0-44.0); MEAN CORPUSCULAR HEMOGLOBIN 30 PG (26.0-33.0); MEAN CORPUSCULAR HGB CONC 33 g/dl (31.0-36.0); MEAN CORPUSCULAR VOLUME 91 fL (82-100); MONOCYTES # (AUTO) 1.9 /CMM (0.1-1.30); MONOCYTES % (AUTO) 8.1 % (2.0-12.0); NEUTROPHILS # (AUTO) 20.5 /CMM (1.8-8.9); NEUTROPHILS % (AUTO) 88.5 % (43.0-81.0); PLATELET COUNT (AUTO) 147 /CMM (150-450); RDW COEFFICIENT OF VARIATION 16.1 (11.5-15.0); RED BLOOD CELL COUNT(AUTO) 4.16 MIL/uL (4.0-5.2); WHITE BLOOD COUNT (AUTO) 23.2 K/uL (4.3-11.0)
[2017-12-01 07:15] LABS: CALCIUM, SERUM 9.3 mg/dL (8.5-10.1); CARBON DIOXIDE 33 mmol/L (21-32); CHLORIDE 107 mmol/L (98-107); CREATININE 0.9 mg/dL (0.6-1.3); GLUCOSE 151 mg/dL (74-106); POTASSIUM 3.9 mmol/L (3.5-5.1); SODIUM SERUM 144 mmol/L (136-145); UREA NITROGEN, BLOOD 21 mg/dL (7-18)
[2017-12-01] MEDS: PANTOPRAZOLE 40 MG/PACK PACK GT SCH (07:42)
[2017-12-01] MEDS: CLOPIDOGREL BISULFATE 75 MG TABLET PO SCH (07:42)
[2017-12-01] MEDS: LEVOTHYROXINE SODIUM 50 MCG TABLET PO SCH (07:42)
[2017-12-01] MEDS: LEVETIRACETAM (250 MG) 250 MG TABLET PO SCH ×3 (07:42→18:05)
[2017-12-01] MEDS: ASPIRIN EC 81 MG TABLET.DR PO SCH (07:42)
[2017-12-01] MEDS: FUROSEMIDE 20 MG TABLET PO SCH (07:44)
[2017-12-01 08:00] VITALS: BP 122/39
[2017-12-01 12:00] VITALS: BP 122/71
[2017-12-01] MEDS ORDERED: DIATR MEGLU/DIATRIZOATE SODIUM 30 ML BOTTLE (GASTROGRAPHIN) ONE (15:11)
[2017-12-01] MEDS: ALBUTEROL FS 2.5 MG/0.5 ML VIAL.NEB NEB PRN ×2 (15:26→22:02)
[2017-12-01] MEDS: IPRATROPIUM NEB FS 0.5 MG/2.5 ML AMPUL.NEB NEB PRN ×2 (15:26→22:02)
[2017-12-01 16:00] VITALS: BP 125/81
[2017-12-01] MEDS: SIMVASTATIN 20 MG TABLET PO SCH ×2 (16:58→18:05)
[2017-12-01] MEDS ORDERED: METOCLOPRAMIDE HCL 10 MG/2 ML VIAL IV SCH (17:30)
[2017-12-01] MEDS: METOCLOPRAMIDE HCL 10 MG TABLET GT SCH (18:05)
[2017-12-01] MEDS ORDERED: FEE PK DOSING 1 MIN EA MC ONE ×2 (19:40→19:49)
[2017-12-01 20:00] VITALS: BP 111/61
[2017-12-01] MEDS: VANCOMYCIN 0.75 GM in IV NS 0.9% 250 ML IV SCH (21:47)
[2017-12-01] MEDS: ENOXAPARIN SODIUM 30 MG/0.3 ML DISP.SYRIN SQ SCH (21:48)
[2017-12-02] VITALS: BP 121/86
[2017-12-02] MEDS: METOPROLOL TARTRATE 25 MG TABLET PO SCH ×3 (00:06→17:27)
[2017-12-02] MEDS: FIBERSOURCE HN 1,000 ML BOTTLE GT PRN (00:20)
[2017-12-02] MEDS: ALBUTEROL FS 2.5 MG/0.5 ML VIAL.NEB NEB PRN (01:12)
[2017-12-02] MEDS: IPRATROPIUM NEB FS 0.5 MG/2.5 ML AMPUL.NEB NEB PRN ×3 (01:12→13:19)
[2017-12-02] MEDS: MEROPENEM 1 G in IV NS 0.9% 100 ML IV SCH ×2 (02:17→16:00)
[2017-12-02] MEDS: METOCLOPRAMIDE HCL 10 MG TABLET GT SCH ×3 (02:17→17:27)
[2017-12-02 04:00] VITALS: BP 109/67
[2017-12-02 07:42] LABS: EOSINOPHILS % (AUTO) 0.1 % (0.0-6.0); HEMATOCRIT 37 % (33-45); HEMOGLOBIN 12.4 g/dL (11.5-14.8); LYMPHOCYTES # (AUTO) 0.7 /CMM (0.8-4.8); LYMPHOCYTES % (AUTO) 3.5 % (20.0-44.0); MEAN CORPUSCULAR HEMOGLOBIN 30 PG (26.0-33.0); MEAN CORPUSCULAR HGB CONC 33 g/dl (31.0-36.0); MEAN CORPUSCULAR VOLUME 90 fL (82-100); MONOCYTES % (AUTO) 5.4 % (2.0-12.0); NEUTROPHILS # (AUTO) 17.6 /CMM (1.8-8.9); PLATELET COUNT (AUTO) 139 /CMM (150-450); RDW COEFFICIENT OF VARIATION 16.3 (11.5-15.0); RED BLOOD CELL COUNT(AUTO) 4.12 MIL/uL (4.0-5.2); WHITE BLOOD COUNT (AUTO) 19.4 K/uL (4.3-11.0)
[2017-12-02 07:54] LABS: CALCIUM, SERUM 9.2 mg/dL (8.5-10.1); CARBON DIOXIDE 34 mmol/L (21-32); CHLORIDE 108 mmol/L (98-107); CREATININE 0.9 mg/dL (0.6-1.3); GLUCOSE 124 mg/dL (74-106); PHOSPHORUS 2.3 mg/dL (2.5-4.9); POTASSIUM 4.1 mmol/L (3.5-5.1); SODIUM SERUM 146 mmol/L (136-145); UREA NITROGEN, BLOOD 24 mg/dL (7-18)
[2017-12-02 08:00] VITALS: BP 135/85
[2017-12-02] MEDS: LEVETIRACETAM (250 MG) 250 MG TABLET PO SCH ×2 (08:03→17:26)
[2017-12-02] MEDS: PANTOPRAZOLE 40 MG/PACK PACK GT SCH (08:03)
[2017-12-02] MEDS: LEVOTHYROXINE SODIUM 50 MCG TABLET PO SCH (08:04)
[2017-12-02] MEDS: CLOPIDOGREL BISULFATE 75 MG TABLET PO SCH (08:04)
[2017-12-02] MEDS: ASPIRIN EC 81 MG TABLET.DR PO SCH (08:04)
[2017-12-02] MEDS: FUROSEMIDE 20 MG TABLET PO SCH (08:04)
[2017-12-02 12:00] VITALS: BP 117/77
[2017-12-02] MEDS: VANCOMYCIN 0.75 GM in IV NS 0.9% 250 ML IV SCH (13:38)
[2017-12-02] MEDS ORDERED: NEUTRA PHOS 1 POWD.PACKET GT ONE (15:00)
[2017-12-02 16:00] VITALS: BP 136/84
[2017-12-02] MEDS: SIMVASTATIN 20 MG TABLET PO SCH (17:27)
[2017-12-02 20:00] VITALS: BP 110/74
[2017-12-02] MEDS: ENOXAPARIN SODIUM 30 MG/0.3 ML DISP.SYRIN SQ SCH (20:48)
[2017-12-03] VITALS: BP 112/74
[2017-12-03] MEDS: METOCLOPRAMIDE HCL 10 MG TABLET GT SCH ×3 (01:49→17:32)
[2017-12-03] MEDS: METOPROLOL TARTRATE 25 MG TABLET PO SCH ×3 (01:50→17:28)
[2017-12-03] MEDS: MEROPENEM 1 G in IV NS 0.9% 100 ML IV SCH ×2 (03:03→15:01)
[2017-12-03 04:00] VITALS: BP 122/85
[2017-12-03 07:32] LABS: CALCIUM, SERUM 9.4 mg/dL (8.5-10.1); CARBON DIOXIDE 34 mmol/L (21-32); CHLORIDE 107 mmol/L (98-107); CREATININE 0.9 mg/dL (0.6-1.3); GLUCOSE 148 mg/dL (74-106); POTASSIUM 4.5 mmol/L (3.5-5.1); SODIUM SERUM 145 mmol/L (136-145); UREA NITROGEN, BLOOD 29 mg/dL (7-18)
[2017-12-03 08:00] VITALS: BP 141/82
[2017-12-03] MEDS: CLOPIDOGREL BISULFATE 75 MG TABLET PO SCH (08:36)
[2017-12-03] MEDS: PANTOPRAZOLE 40 MG/PACK PACK GT SCH (08:36)
[2017-12-03] MEDS: ASPIRIN EC 81 MG TABLET.DR PO SCH (08:36)
[2017-12-03] MEDS: LEVETIRACETAM (250 MG) 250 MG TABLET PO SCH ×2 (08:36→17:28)
[2017-12-03] MEDS: LEVOTHYROXINE SODIUM 50 MCG TABLET PO SCH (08:36)
[2017-12-03] MEDS: VANCOMYCIN 0.75 GM in IV NS 0.9% 250 ML IV SCH (08:37)
[2017-12-03] MEDS: Z GUARD REMEDY 2 OZ OINT TP PRN (08:38)
[2017-12-03] MEDS: FUROSEMIDE 20 MG TABLET PO SCH (08:40)
[2017-12-03 12:00] VITALS: BP 92/61
[2017-12-03] MEDS: FIBERSOURCE HN 1,000 ML BOTTLE GT PRN (15:30)
[2017-12-03 16:00] VITALS: BP 147/69
[2017-12-03] MEDS ORDERED: APIXABAN 2.5 MG TABLET PO ONE (17:00)
[2017-12-03] MEDS: SIMVASTATIN 20 MG TABLET PO SCH (17:32)
[2017-12-03] MEDS ORDERED: BISACODYL SUPP (10 MG) 10 MG/SUPP.RECT SUPP.RECT RC ONE (18:00)
[2017-12-03 20:00] VITALS: BP 107/73
[2017-12-03] MEDS: DILTIAZEM HCL 30 MG TABLET PO SCH (22:04)
[2017-12-03] MEDS: ENOXAPARIN SODIUM 30 MG/0.3 ML DISP.SYRIN SQ SCH (22:05)
[2017-12-04] VITALS (17 sets, daily range): BP systolic 78–136; BP diastolic 45–96
[2017-12-04] MEDS: METOCLOPRAMIDE HCL 10 MG TABLET GT SCH ×3 (01:49→17:16)
[2017-12-04] MEDS: VANCOMYCIN 0.75 GM in IV NS 0.9% 250 ML IV SCH (01:49)
[2017-12-04] MEDS: METOPROLOL TARTRATE 25 MG TABLET PO SCH ×3 (01:49→16:49)
[2017-12-04] MEDS: MEROPENEM 1 G in IV NS 0.9% 100 ML IV SCH ×2 (04:02→15:17)
[2017-12-04] MEDS: DILTIAZEM HCL 30 MG TABLET PO SCH ×3 (05:01→21:43)
[2017-12-04] MEDS: IPRATROPIUM NEB FS 0.5 MG/2.5 ML AMPUL.NEB NEB PRN ×2 (07:33→13:16)
[2017-12-04] MEDS: ALBUTEROL FS 2.5 MG/0.5 ML VIAL.NEB NEB PRN ×2 (07:33→13:16)
[2017-12-04 08:14] LABS: CALCIUM, SERUM 9.2 mg/dL (8.5-10.1); CARBON DIOXIDE 37 mmol/L (21-32); CHLORIDE 104 mmol/L (98-107); CREATININE 0.8 mg/dL (0.6-1.3); GLUCOSE 116 mg/dL (74-106); POTASSIUM 4.2 mmol/L (3.5-5.1); SODIUM SERUM 144 mmol/L (136-145); UREA NITROGEN, BLOOD 29 mg/dL (7-18)
[2017-12-04] MEDS: LEVOTHYROXINE SODIUM 50 MCG TABLET PO SCH (09:05)
[2017-12-04] MEDS: PANTOPRAZOLE 40 MG/PACK PACK GT SCH (09:06)
[2017-12-04] MEDS: ASPIRIN EC 81 MG TABLET.DR PO SCH (09:06)
[2017-12-04] MEDS: LEVETIRACETAM (250 MG) 250 MG TABLET PO SCH ×2 (09:06→17:16)
[2017-12-04] MEDS: APIXABAN 2.5 MG TABLET PO SCH ×2 (09:08→17:16)
[2017-12-04] MEDS: FUROSEMIDE 20 MG TABLET PO SCH (09:13)
[2017-12-04 11:19] LABS: ABG BASE EXCESS 11.5 mmol/L; ABG OXYGEN SATURATION 96.9 % (92.0-98.5); ABG PCO2 67.6 mmHg (35.0-45.0); ABG PH 7.382 (7.350-7.450); ABG PO2 94.8 mmHg (75.0-100.0); AaDO2 149.2 mmHg; COHb 0.9 % (0.5-1.5); MetHb 0.3 % (0.0-1.5); O2Hb 95.7 % (94.0-97.0); SITE, ABG Left Brachial; VENT MODE, BG SIMPLE MASK
[2017-12-04 14:54] LABS: BASOPHILS % (AUTO) 0.1 % (0.0-2.0); EOSINOPHILS # (AUTO) 0.1 /CMM (0.0-0.7); EOSINOPHILS % (AUTO) 0.6 % (0.0-6.0); HEMATOCRIT 38 % (33-45); HEMOGLOBIN 12.2 g/dL (11.5-14.8); LYMPHOCYTES # (AUTO) 0.8 /CMM (0.8-4.8); LYMPHOCYTES % (AUTO) 4.6 % (20.0-44.0); MEAN CORPUSCULAR HEMOGLOBIN 30 PG (26.0-33.0); MEAN CORPUSCULAR HGB CONC 33 g/dl (31.0-36.0); MEAN CORPUSCULAR VOLUME 92 fL (82-100); MONOCYTES # (AUTO) 1.7 /CMM (0.1-1.30); MONOCYTES % (AUTO) 9.4 % (2.0-12.0); NEUTROPHILS # (AUTO) 14.9 /CMM (1.8-8.9); NEUTROPHILS % (AUTO) 85.3 % (43.0-81.0); PLATELET COUNT (AUTO) 150 /CMM (150-450); RDW COEFFICIENT OF VARIATION 16.3 (11.5-15.0); RED BLOOD CELL COUNT(AUTO) 4.09 MIL/uL (4.0-5.2); WHITE BLOOD COUNT (AUTO) 17.5 K/uL (4.3-11.0)
[2017-12-04 15:25] LABS: ABG BASE EXCESS 13.5 mmol/L; ABG OXYGEN SATURATION 83.4 % (92.0-98.5); ABG PCO2 54.1 mmHg (35.0-45.0); ABG PH 7.478 (7.350-7.450); ABG PO2 44.6 mmHg (75.0-100.0); AaDO2 105.7 mmHg; COHb 1.1 % (0.5-1.5); MetHb 0.5 % (0.0-1.5); O2Hb 82.1 % (94.0-97.0); SITE, ABG Left Radial
[2017-12-04] MEDS: FIBERSOURCE HN 1,000 ML BOTTLE GT PRN (16:50)
[2017-12-04] MEDS: SIMVASTATIN 20 MG TABLET PO SCH (17:16)
[2017-12-04 17:51] LABS: BAND % (MANUAL) 6 % (0.0-5.0); BASOPHILS % (MANUAL) 0 % (0.0-2.0); EOSINOPHILS % (MANUAL) 0 % (0-4); LYMPHOCYTES % (MANUAL) 3 % (16-48); MONOCYTES % (MANUAL) 9 % (0-11.0); NEUTROPHILS % (MANUAL) 82 (42-76)
[2017-12-04] MEDS: VANCOMYCIN 1 GM in IV NS 0.9% 250 ML IV SCH (20:01)
[2017-12-05] VITALS (37 sets, daily range): BP systolic 76–130; BP diastolic 40–74
[2017-12-05] MEDS: METOPROLOL TARTRATE 25 MG TABLET PO SCH ×3 (01:45→17:00)
[2017-12-05] MEDS: METOCLOPRAMIDE HCL 10 MG TABLET GT SCH ×3 (01:46→17:06)
[2017-12-05] MEDS: MEROPENEM 1 G in IV NS 0.9% 100 ML IV SCH ×2 (02:19→15:05)
[2017-12-05] MEDS: DILTIAZEM HCL 30 MG TABLET PO SCH ×3 (04:43→21:12)
[2017-12-05 04:58] LABS: CALCIUM, SERUM 8.9 mg/dL (8.5-10.1); CARBON DIOXIDE 37 mmol/L (21-32); CHLORIDE 103 mmol/L (98-107); CREATININE 0.9 mg/dL (0.6-1.3); GLUCOSE 140 mg/dL (74-106); SODIUM SERUM 144 mmol/L (136-145); UREA NITROGEN, BLOOD 29 mg/dL (7-18)
[2017-12-05] MEDS: APIXABAN 2.5 MG TABLET PO SCH ×2 (08:49→17:06)
[2017-12-05] MEDS: LEVETIRACETAM (250 MG) 250 MG TABLET PO SCH ×2 (08:50→17:06)
[2017-12-05] MEDS: PANTOPRAZOLE 40 MG/PACK PACK GT SCH (08:50)
[2017-12-05] MEDS: LEVOTHYROXINE SODIUM 50 MCG TABLET PO SCH (08:50)
[2017-12-05] MEDS: ASPIRIN EC 81 MG TABLET.DR PO SCH (08:50)
[2017-12-05] MEDS: FUROSEMIDE 20 MG TABLET PO SCH (08:50)
[2017-12-05 09:02] LABS: HEMATOCRIT 37 % (33-45); HEMOGLOBIN 12.1 g/dL (11.5-14.8); MEAN CORPUSCULAR HEMOGLOBIN 29 PG (26.0-33.0); MEAN CORPUSCULAR HGB CONC 32 g/dl (31.0-36.0); MEAN CORPUSCULAR VOLUME 91 fL (82-100); WHITE BLOOD COUNT (AUTO) 16.4 K/uL (4.3-11.0)
[2017-12-05 09:03] LABS: BASOPHILS % (AUTO) 0.1 % (0.0-2.0); EOSINOPHILS # (AUTO) 0.1 /CMM (0.0-0.7); EOSINOPHILS % (AUTO) 0.8 % (0.0-6.0); LYMPHOCYTES % (AUTO) 6.2 % (20.0-44.0); MONOCYTES # (AUTO) 1.4 /CMM (0.1-1.30); MONOCYTES % (AUTO) 8.4 % (2.0-12.0); NEUTROPHILS # (AUTO) 13.8 /CMM (1.8-8.9); NEUTROPHILS % (AUTO) 84.5 % (43.0-81.0); PLATELET COUNT (AUTO) 143 /CMM (150-450)
[2017-12-05] MEDS: FIBERSOURCE HN 1,000 ML BOTTLE GT PRN (13:05)
[2017-12-05] MEDS: VANCOMYCIN 1 GM in IV NS 0.9% 250 ML IV SCH (13:54)
[2017-12-05] MEDS: SIMVASTATIN 20 MG TABLET PO SCH (17:06)
[2017-12-05] MEDS ORDERED: IV NS 0.9% 500 ML IV ONE (17:30)
[2017-12-06] VITALS (35 sets, daily range): BP systolic 77–130; BP diastolic 40–75
[2017-12-06] MEDS: METOPROLOL TARTRATE 25 MG TABLET PO SCH ×3 (01:14→16:45)
[2017-12-06] MEDS: METOCLOPRAMIDE HCL 10 MG TABLET GT SCH ×3 (02:04→17:00)
[2017-12-06] MEDS: MEROPENEM 1 G in IV NS 0.9% 100 ML IV SCH ×2 (03:03→14:16)
[2017-12-06 04:52] LABS: BASOPHILS % (AUTO) 0.1 % (0.0-2.0); EOSINOPHILS # (AUTO) 0.2 /CMM (0.0-0.7); EOSINOPHILS % (AUTO) 1.3 % (0.0-6.0); HEMATOCRIT 36 % (33-45); HEMOGLOBIN 11.7 g/dL (11.5-14.8); LYMPHOCYTES # (AUTO) 0.7 /CMM (0.8-4.8); LYMPHOCYTES % (AUTO) 4.4 % (20.0-44.0); MEAN CORPUSCULAR HEMOGLOBIN 30 PG (26.0-33.0); MEAN CORPUSCULAR HGB CONC 33 g/dl (31.0-36.0); MEAN CORPUSCULAR VOLUME 91 fL (82-100); MONOCYTES # (AUTO) 1.7 /CMM (0.1-1.30); MONOCYTES % (AUTO) 10.1 % (2.0-12.0); NEUTROPHILS # (AUTO) 13.8 /CMM (1.8-8.9); NEUTROPHILS % (AUTO) 84.1 % (43.0-81.0); PLATELET COUNT (AUTO) 141 /CMM (150-450); RDW COEFFICIENT OF VARIATION 16.1 (11.5-15.0); RED BLOOD CELL COUNT(AUTO) 3.95 MIL/uL (4.0-5.2); WHITE BLOOD COUNT (AUTO) 16.4 K/uL (4.3-11.0)
[2017-12-06 05:07] LABS: CALCIUM, SERUM 8.9 mg/dL (8.5-10.1); CARBON DIOXIDE 37 mmol/L (21-32); CHLORIDE 102 mmol/L (98-107); CREATININE 0.8 mg/dL (0.6-1.3); GLUCOSE 136 mg/dL (74-106); PHOSPHORUS 1.9 mg/dL (2.5-4.9); SODIUM SERUM 142 mmol/L (136-145); UREA NITROGEN, BLOOD 27 mg/dL (7-18)
[2017-12-06] MEDS: DILTIAZEM HCL 30 MG TABLET PO SCH ×3 (05:23→20:47)
[2017-12-06] MEDS: LEVETIRACETAM (250 MG) 250 MG TABLET PO SCH ×2 (08:17→16:56)
[2017-12-06] MEDS: PANTOPRAZOLE 40 MG/PACK PACK GT SCH (08:17)
[2017-12-06] MEDS: APIXABAN 2.5 MG TABLET PO SCH ×2 (08:17→16:56)
[2017-12-06] MEDS: FUROSEMIDE 20 MG TABLET PO SCH (08:17)
[2017-12-06] MEDS: ASPIRIN EC 81 MG TABLET.DR PO SCH (08:17)
[2017-12-06] MEDS: VANCOMYCIN 1 GM in IV NS 0.9% 250 ML IV SCH (08:18)
[2017-12-06] MEDS: Z GUARD REMEDY 2 OZ OINT TP PRN (08:18)
[2017-12-06] MEDS: LEVOTHYROXINE SODIUM 50 MCG TABLET PO SCH (08:20)
[2017-12-06 08:53] LABS: ABG BASE EXCESS 10.9 mmol/L; ABG OXYGEN SATURATION 96.6 % (92.0-98.5); ABG PCO2 39.7 mmHg (35.0-45.0); ABG PH 7.552 (7.350-7.450); ABG PO2 84.6 mmHg (75.0-100.0); AaDO2 154.9 mmHg; COHb 0.6 % (0.5-1.5); MetHb 0.4 % (0.0-1.5); O2Hb 95.6 % (94.0-97.0); SITE, ABG Right Brachial; VENT MODE, BG BIPAP 15/5
[2017-12-06] MEDS: NEUTRA PHOS 1 POWD.PACKET PO SCH ×2 (09:22→16:56)
[2017-12-06 11:42] LABS: ABG BASE EXCESS 15.9 mmol/L; ABG OXYGEN SATURATION 97.5 % (92.0-98.5); ABG PCO2 52.2 mmHg (35.0-45.0); ABG PH 7.514 (7.350-7.450); ABG PO2 100.3 mmHg (75.0-100.0); AaDO2 95.8 mmHg; COHb 0.7 % (0.5-1.5); MetHb 0.6 % (0.0-1.5); O2Hb 96.2 % (94.0-97.0); SITE, ABG Right Radial; VENT MODE, BG NASAL CANNULA
[2017-12-06] MEDS: NEOMY SULF/BACITRAC ZN/POLY 15 GM TUBE TP SCH ×2 (12:44→16:56)
[2017-12-06] MEDS: FIBERSOURCE HN 1,000 ML BOTTLE GT PRN (14:59)
[2017-12-06] MEDS ORDERED: IV NS 0.9% 500 ML IV ONE (15:30)
[2017-12-06] MEDS: SIMVASTATIN 20 MG TABLET PO SCH (17:00)
[2017-12-06] MEDS: IV NS 0.9% 1,000 ML IV PRN (19:34)
[2017-12-07] VITALS (24 sets, daily range): BP systolic 83–129; BP diastolic 32–81
[2017-12-07] MEDS: METOPROLOL TARTRATE 25 MG TABLET PO SCH ×3 (02:01→16:32)
[2017-12-07] MEDS: METOCLOPRAMIDE HCL 10 MG TABLET GT SCH ×3 (02:19→17:18)
[2017-12-07] MEDS: MEROPENEM 1 G in IV NS 0.9% 100 ML IV SCH ×2 (02:35→14:43)
[2017-12-07 04:36] LABS: BASOPHILS % (AUTO) 0.2 % (0.0-2.0); EOSINOPHILS # (AUTO) 0.1 /CMM (0.0-0.7); HEMATOCRIT 33 % (33-45); HEMOGLOBIN 10.8 g/dL (11.5-14.8); LYMPHOCYTES # (AUTO) 0.8 /CMM (0.8-4.8); LYMPHOCYTES % (AUTO) 6.9 % (20.0-44.0); MEAN CORPUSCULAR HEMOGLOBIN 30 PG (26.0-33.0); MEAN CORPUSCULAR HGB CONC 33 g/dl (31.0-36.0); MEAN CORPUSCULAR VOLUME 92 fL (82-100); MONOCYTES # (AUTO) 1.3 /CMM (0.1-1.30); NEUTROPHILS # (AUTO) 8.8 /CMM (1.8-8.9); NEUTROPHILS % (AUTO) 79.9 % (43.0-81.0); PLATELET COUNT (AUTO) 100 /CMM (150-450); RDW COEFFICIENT OF VARIATION 16.1 (11.5-15.0); RED BLOOD CELL COUNT(AUTO) 3.61 MIL/uL (4.0-5.2); WHITE BLOOD COUNT (AUTO) 11.1 K/uL (4.3-11.0)
[2017-12-07] MEDS: DILTIAZEM HCL 30 MG TABLET PO SCH ×3 (05:00→21:40)
[2017-12-07 05:07] LABS: CALCIUM, SERUM 8.1 mg/dL (8.5-10.1); CARBON DIOXIDE 37 mmol/L (21-32); CHLORIDE 107 mmol/L (98-107); CREATININE 0.8 mg/dL (0.6-1.3); GLUCOSE 107 mg/dL (74-106); MAGNESIUM 1.9 mg/dL (1.8-2.4); POTASSIUM 4.1 mmol/L (3.5-5.1); SODIUM SERUM 147 mmol/L (136-145); UREA NITROGEN, BLOOD 25 mg/dL (7-18); VANCOMYCIN,TROUGH 21 ug/ml (12-20)
[2017-12-07] MEDS: VANCOMYCIN 0.75 GM in IV D5W 250 ML IV SCH ×2 (08:00→09:40)
[2017-12-07] MEDS: FUROSEMIDE 20 MG TABLET PO SCH (08:28)
[2017-12-07] MEDS: APIXABAN 2.5 MG TABLET PO SCH ×2 (08:28→16:39)
[2017-12-07] MEDS: LEVETIRACETAM (250 MG) 250 MG TABLET PO SCH ×2 (08:28→16:39)
[2017-12-07] MEDS: PANTOPRAZOLE 40 MG/PACK PACK GT SCH (08:28)
[2017-12-07] MEDS: ASPIRIN EC 81 MG TABLET.DR PO SCH (08:28)
[2017-12-07] MEDS: FIBERSOURCE HN 1,000 ML BOTTLE GT PRN (08:28)
[2017-12-07] MEDS: LEVOTHYROXINE SODIUM 50 MCG TABLET PO SCH (08:28)
[2017-12-07] MEDS: NEOMY SULF/BACITRAC ZN/POLY 15 GM TUBE TP SCH ×2 (08:30→16:50)
[2017-12-07] MEDS: ALBUTEROL FS 2.5 MG/0.5 ML VIAL.NEB NEB PRN (12:04)
[2017-12-07] MEDS: IPRATROPIUM NEB FS 0.5 MG/2.5 ML AMPUL.NEB NEB PRN (12:04)
[2017-12-07] MEDS: IV NS 0.9% 1,000 ML IV PRN (14:48)
[2017-12-07] MEDS ORDERED: COD LIVER OIL/ZINC OXIDE 120 GM TUBE TP PRN (16:00)
[2017-12-07] MEDS: SIMVASTATIN 20 MG TABLET PO SCH (17:18)
[2017-12-08] VITALS: BP 98/65
[2017-12-08] MEDS: METOPROLOL TARTRATE 25 MG TABLET PO SCH ×3 (01:09→17:00)
[2017-12-08] MEDS: METOCLOPRAMIDE HCL 10 MG TABLET GT SCH ×3 (01:09→17:29)
[2017-12-08] MEDS: VANCOMYCIN 0.75 GM in IV D5W 250 ML IV SCH ×2 (01:14→21:44)
[2017-12-08] MEDS: MEROPENEM 1 G in IV NS 0.9% 100 ML IV SCH ×2 (02:26→14:00)
[2017-12-08 04:00] VITALS: BP_SYST 102; BP_SYST 109; BP_DIAS 65; BP_DIAS 71
[2017-12-08] MEDS: DILTIAZEM HCL 30 MG TABLET PO SCH ×3 (04:11→21:44)
[2017-12-08 07:22] LABS: BASOPHILS % (AUTO) 0.3 % (0.0-2.0); EOSINOPHILS # (AUTO) 0.1 /CMM (0.0-0.7); EOSINOPHILS % (AUTO) 0.8 % (0.0-6.0); HEMATOCRIT 33 % (33-45); LYMPHOCYTES # (AUTO) 0.7 /CMM (0.8-4.8); LYMPHOCYTES % (AUTO) 5.8 % (20.0-44.0); MEAN CORPUSCULAR HEMOGLOBIN 30 PG (26.0-33.0); MEAN CORPUSCULAR HGB CONC 33 g/dl (31.0-36.0); MEAN CORPUSCULAR VOLUME 91 fL (82-100); MONOCYTES # (AUTO) 1.3 /CMM (0.1-1.30); MONOCYTES % (AUTO) 10.9 % (2.0-12.0); NEUTROPHILS # (AUTO) 9.9 /CMM (1.8-8.9); NEUTROPHILS % (AUTO) 82.2 % (43.0-81.0); PLATELET COUNT (AUTO) 79 /CMM (150-450); RDW COEFFICIENT OF VARIATION 16.4 (11.5-15.0); RED BLOOD CELL COUNT(AUTO) 3.67 MIL/uL (4.0-5.2)
[2017-12-08 07:39] LABS: CALCIUM, SERUM 8.2 mg/dL (8.5-10.1); CARBON DIOXIDE 34 mmol/L (21-32); CHLORIDE 107 mmol/L (98-107); CREATININE 0.8 mg/dL (0.6-1.3); GLUCOSE 106 mg/dL (74-106); MAGNESIUM 1.8 mg/dL (1.8-2.4); PHOSPHORUS 2.6 mg/dL (2.5-4.9); POTASSIUM 4.6 mmol/L (3.5-5.1); SODIUM SERUM 144 mmol/L (136-145); UREA NITROGEN, BLOOD 23 mg/dL (7-18)
[2017-12-08 08:00] VITALS: BP_SYST 137; BP_SYST 95; BP_DIAS 45; BP_DIAS 59
[2017-12-08 08:34] LABS: LYMPHOCYTES % (MANUAL) 6 % (16-48); MONOCYTES % (MANUAL) 6 % (0-11.0); NEUTROPHILS % (MANUAL) 88 (42-76)
[2017-12-08] MEDS: PANTOPRAZOLE 40 MG/PACK PACK GT SCH (08:50)
[2017-12-08] MEDS: ASPIRIN EC 81 MG TABLET.DR PO SCH (08:50)
[2017-12-08] MEDS: LEVETIRACETAM (250 MG) 250 MG TABLET PO SCH ×2 (08:50→16:15)
[2017-12-08] MEDS: FUROSEMIDE 20 MG TABLET PO SCH (08:51)
[2017-12-08] MEDS: LEVOTHYROXINE SODIUM 50 MCG TABLET PO SCH (08:51)
[2017-12-08] MEDS: APIXABAN 2.5 MG TABLET PO SCH ×2 (08:51→16:15)
[2017-12-08] MEDS: NEOMY SULF/BACITRAC ZN/POLY 15 GM TUBE TP SCH ×2 (08:52→16:15)
[2017-12-08] MEDS: IV NS 0.9% 1,000 ML IV PRN (09:21)
[2017-12-08 11:21] LABS: ABG BASE EXCESS 10.7 mmol/L; ABG OXYGEN SATURATION 96.6 % (92.0-98.5); ABG PCO2 46.9 mmHg (35.0-45.0); ABG PH 7.494 (7.350-7.450); ABG PO2 90.7 mmHg (75.0-100.0); AaDO2 140.6 mmHg; COHb 0.7 % (0.5-1.5); MetHb 0.6 % (0.0-1.5); O2Hb 95.3 % (94.0-97.0); SITE, ABG Left Radial; VENT MODE, BG NC 5L
[2017-12-08 12:00] VITALS: BP 109/66
[2017-12-08] MEDS ORDERED: ACETAMINOPHEN 325 MG TABLET PO PRN (15:00)
[2017-12-08 16:00] VITALS: BP 90/46
[2017-12-08] MEDS: FIBERSOURCE HN 1,000 ML BOTTLE GT PRN (17:28)
[2017-12-08] MEDS: SIMVASTATIN 20 MG TABLET PO SCH (17:29)
[2017-12-08 20:00] VITALS: BP 115/46
[2017-12-09] VITALS: BP 96/58
[2017-12-09] MEDS: METOPROLOL TARTRATE 25 MG TABLET PO SCH ×3 (01:38→18:13)
[2017-12-09] MEDS: MEROPENEM 1 G in IV NS 0.9% 100 ML IV SCH ×2 (03:17→15:24)
[2017-12-09] MEDS: IV NS 0.9% 1,000 ML IV PRN (03:19)
[2017-12-09] MEDS: FIBERSOURCE HN 1,000 ML BOTTLE GT PRN ×2 (03:19→18:15)
[2017-12-09 04:00] VITALS: BP 99/70
[2017-12-09] MEDS: DILTIAZEM HCL 30 MG TABLET PO SCH ×3 (05:11→21:32)
[2017-12-09 07:17] LABS: BASOPHILS # (AUTO) 0.1 /CMM (0.0-0.2); BASOPHILS % (AUTO) 0.4 % (0.0-2.0); EOSINOPHILS % (AUTO) 0.2 % (0.0-6.0); HEMATOCRIT 31 % (33-45); HEMOGLOBIN 10.6 g/dL (11.5-14.8); LYMPHOCYTES # (AUTO) 0.8 /CMM (0.8-4.8); LYMPHOCYTES % (AUTO) 4.8 % (20.0-44.0); MEAN CORPUSCULAR HEMOGLOBIN 30 PG (26.0-33.0); MEAN CORPUSCULAR HGB CONC 34 g/dl (31.0-36.0); MEAN CORPUSCULAR VOLUME 90 fL (82-100); MONOCYTES % (AUTO) 5.8 % (2.0-12.0); NEUTROPHILS % (AUTO) 88.8 % (43.0-81.0); PLATELET COUNT (AUTO) 74 /CMM (150-450); RED BLOOD CELL COUNT(AUTO) 3.48 MIL/uL (4.0-5.2); WHITE BLOOD COUNT (AUTO) 16.9 K/uL (4.3-11.0)
[2017-12-09 07:29] LABS: CALCIUM, SERUM 8.1 mg/dL (8.5-10.1); CARBON DIOXIDE 32 mmol/L (21-32); CHLORIDE 105 mmol/L (98-107); CREATININE 0.7 mg/dL (0.6-1.3); GLUCOSE 140 mg/dL (74-106); MAGNESIUM 1.8 mg/dL (1.8-2.4); PHOSPHORUS 1.7 mg/dL (2.5-4.9); POTASSIUM 4.5 mmol/L (3.5-5.1); SODIUM SERUM 141 mmol/L (136-145); UREA NITROGEN, BLOOD 21 mg/dL (7-18)
[2017-12-09 08:00] VITALS: BP 94/55
[2017-12-09] MEDS: LEVETIRACETAM (250 MG) 250 MG TABLET PO SCH ×2 (08:53→17:44)
[2017-12-09] MEDS: FUROSEMIDE 20 MG TABLET PO SCH (08:53)
[2017-12-09] MEDS: LEVOTHYROXINE SODIUM 50 MCG TABLET PO SCH (08:54)
[2017-12-09] MEDS: PANTOPRAZOLE 40 MG/PACK PACK GT SCH (08:54)
[2017-12-09] MEDS: APIXABAN 2.5 MG TABLET PO SCH ×2 (08:54→18:11)
[2017-12-09] MEDS: ASPIRIN EC 81 MG TABLET.DR PO SCH (08:54)
[2017-12-09] MEDS: NEOMY SULF/BACITRAC ZN/POLY 15 GM TUBE TP SCH ×2 (08:55→18:13)
[2017-12-09 09:18] LABS: BAND % (MANUAL) 3 % (0.0-5.0); LYMPHOCYTES % (MANUAL) 3 % (16-48); MONOCYTES % (MANUAL) 6 % (0-11.0); NEUTROPHILS % (MANUAL) 88 (42-76)
[2017-12-09 12:00] VITALS: BP 94/55
[2017-12-09] MEDS ORDERED: NEUTRA PHOS 1 POWD.PACKET NG ONE (13:00)
[2017-12-09] MEDS: VANCOMYCIN 0.75 GM in IV D5W 250 ML IV SCH (13:28)
[2017-12-09 16:00] VITALS: BP 94/55
[2017-12-09] MEDS: SIMVASTATIN 20 MG TABLET PO SCH (17:44)
[2017-12-09 20:00] VITALS: BP_SYST 101; BP_SYST 92; BP_DIAS 62
[2017-12-10 00:28] VITALS: BP 90/56
[2017-12-10] MEDS: METOPROLOL TARTRATE 25 MG TABLET PO SCH ×3 (01:13→17:00)
[2017-12-10] MEDS: MEROPENEM 1 G in IV NS 0.9% 100 ML IV SCH ×2 (02:35→15:45)
[2017-12-10] MEDS: IV NS 0.9% 1,000 ML IV PRN ×2 (02:39→17:54)
[2017-12-10 04:00] VITALS: BP 107/68
[2017-12-10] MEDS: DILTIAZEM HCL 30 MG TABLET PO SCH ×3 (06:16→21:22)
[2017-12-10 08:00] VITALS: BP 125/91
[2017-12-10 08:24] LABS: CALCIUM, SERUM 8.2 mg/dL (8.5-10.1); CARBON DIOXIDE 31 mmol/L (21-32); CHLORIDE 106 mmol/L (98-107); CREATININE 0.7 mg/dL (0.6-1.3); GLUCOSE 111 mg/dL (74-106); MAGNESIUM 1.8 mg/dL (1.8-2.4); PHOSPHORUS 2.8 mg/dL (2.5-4.9); POTASSIUM 4.1 mmol/L (3.5-5.1); SODIUM SERUM 142 mmol/L (136-145); UREA NITROGEN, BLOOD 23 mg/dL (7-18)
[2017-12-10] MEDS: VANCOMYCIN 0.75 GM in IV D5W 250 ML IV SCH (08:51)
[2017-12-10] MEDS: LEVOTHYROXINE SODIUM 50 MCG TABLET PO SCH (09:22)
[2017-12-10] MEDS: PANTOPRAZOLE 40 MG/PACK PACK GT SCH (09:22)
[2017-12-10] MEDS: FUROSEMIDE 20 MG TABLET PO SCH (09:22)
[2017-12-10] MEDS: ASPIRIN EC 81 MG TABLET.DR PO SCH (09:23)
[2017-12-10] MEDS: LEVETIRACETAM (250 MG) 250 MG TABLET PO SCH ×2 (09:23→16:00)
[2017-12-10 09:27] LABS: EOSINOPHILS # (AUTO) 0.1 /CMM (0.0-0.7); EOSINOPHILS % (AUTO) 0.8 % (0.0-6.0); HEMATOCRIT 33 % (33-45); HEMOGLOBIN 10.5 g/dL (11.5-14.8); LYMPHOCYTES # (AUTO) 0.6 /CMM (0.8-4.8); LYMPHOCYTES % (AUTO) 4.4 % (20.0-44.0); MEAN CORPUSCULAR HEMOGLOBIN 30 PG (26.0-33.0); MEAN CORPUSCULAR HGB CONC 32 g/dl (31.0-36.0); MEAN CORPUSCULAR VOLUME 91 fL (82-100); MONOCYTES # (AUTO) 1.5 /CMM (0.1-1.30); MONOCYTES % (AUTO) 10.6 % (2.0-12.0); NEUTROPHILS # (AUTO) 12.3 /CMM (1.8-8.9); NEUTROPHILS % (AUTO) 84.2 % (43.0-81.0); RDW COEFFICIENT OF VARIATION 16.8 (11.5-15.0); RED BLOOD CELL COUNT(AUTO) 3.57 MIL/uL (4.0-5.2); WHITE BLOOD COUNT (AUTO) 14.6 K/uL (4.3-11.0)
[2017-12-10] MEDS: NEOMY SULF/BACITRAC ZN/POLY 15 GM TUBE TP SCH ×2 (09:29→17:57)
[2017-12-10 09:31] LABS: PLATELET COUNT (AUTO) 20 /CMM (150-450)
[2017-12-10 09:49] LABS: BAND % (MANUAL) 2 % (0.0-5.0); LYMPHOCYTES % (MANUAL) 5 % (16-48); MONOCYTES % (MANUAL) 7 % (0-11.0); NEUTROPHILS % (MANUAL) 86 (42-76)
[2017-12-10] MEDS: APIXABAN 2.5 MG TABLET PO SCH (10:00)
[2017-12-10 12:00] VITALS: BP 96/58
[2017-12-10] MEDS: FIBERSOURCE HN 1,000 ML BOTTLE GT PRN (15:58)
[2017-12-10 16:00] VITALS: BP 101/65
[2017-12-10] MEDS: SIMVASTATIN 20 MG TABLET PO SCH (17:58)
[2017-12-10 20:00] VITALS: BP 115/76
[2017-12-10] MEDS ORDERED: METRONIDAZOLE 500MG/ NS 100ML 100 ML IV ONE (20:45)
[2017-12-10] MEDS: METRONIDAZOLE 500MG/ NS 100ML 500 MG in PREMIX 1 EA IV SCH (21:06)
[2017-12-10] MEDS ORDERED: DOXYCYCLINE 100 MG VIAL ONE (22:20)
[2017-12-10] MEDS ORDERED: AZTREONAM 1 G VIAL ONE (22:20)
[2017-12-10] MEDS: DOXYCYCLINE 100 MG in IV NS 0.9% 100 ML IV SCH (22:53)
[2017-12-10] MEDS: AZTREONAM 1 G in IV NS 0.9% 100 ML IV SCH (22:53)
[2017-12-11] VITALS (10 sets, daily range): BP systolic 89–115; BP diastolic 53–76
[2017-12-11] MEDS: METOPROLOL TARTRATE 25 MG TABLET PO SCH ×3 (01:30→16:43)
[2017-12-11] MEDS ORDERED: METRONIDAZOLE 500MG/ NS 100ML 100 ML IV ONE (04:19)
[2017-12-11] MEDS: METRONIDAZOLE 500MG/ NS 100ML 500 MG in PREMIX 1 EA IV SCH ×3 (04:33→20:23)
[2017-12-11] MEDS: DILTIAZEM HCL 30 MG TABLET PO SCH (05:00)
[2017-12-11] MEDS ORDERED: AZTREONAM 1 G VIAL ONE (05:18)
[2017-12-11] MEDS: AZTREONAM 1 G in IV NS 0.9% 100 ML IV SCH ×3 (05:37→20:23)
[2017-12-11 07:34] LABS: CALCIUM, SERUM 8.3 mg/dL (8.5-10.1); CARBON DIOXIDE 30 mmol/L (21-32); CHLORIDE 106 mmol/L (98-107); CREATININE 0.7 mg/dL (0.6-1.3); GLUCOSE 131 mg/dL (74-106); MAGNESIUM 1.8 mg/dL (1.8-2.4); PHOSPHORUS 2.3 mg/dL (2.5-4.9); POTASSIUM 4.2 mmol/L (3.5-5.1); SODIUM SERUM 141 mmol/L (136-145); UREA NITROGEN, BLOOD 24 mg/dL (7-18)
[2017-12-11 07:36] LABS: EOSINOPHILS # (AUTO) 0.1 /CMM (0.0-0.7); EOSINOPHILS % (AUTO) 1.1 % (0.0-6.0); HEMATOCRIT 30 % (33-45); HEMOGLOBIN 9.8 g/dL (11.5-14.8); LYMPHOCYTES # (AUTO) 0.6 /CMM (0.8-4.8); MEAN CORPUSCULAR HEMOGLOBIN 30 PG (26.0-33.0); MEAN CORPUSCULAR HGB CONC 33 g/dl (31.0-36.0); MEAN CORPUSCULAR VOLUME 91 fL (82-100); MONOCYTES # (AUTO) 1.3 /CMM (0.1-1.30); MONOCYTES % (AUTO) 12.7 % (2.0-12.0); NEUTROPHILS # (AUTO) 8.4 /CMM (1.8-8.9); NEUTROPHILS % (AUTO) 80.2 % (43.0-81.0); RDW COEFFICIENT OF VARIATION 16.8 (11.5-15.0); RED BLOOD CELL COUNT(AUTO) 3.28 MIL/uL (4.0-5.2); WHITE BLOOD COUNT (AUTO) 10.5 K/uL (4.3-11.0)
[2017-12-11 07:43] LABS: PLATELET COUNT (AUTO) 9 /CMM (150-450)
[2017-12-11 07:55] LABS: ALBUMIN 1.3 g/dL (3.4-5.0)
[2017-12-11 08:27] LABS: EOSINOPHILS % (MANUAL) 3 % (0-4); LYMPHOCYTES % (MANUAL) 6 % (16-48); MONOCYTES % (MANUAL) 7 % (0-11.0); NEUTROPHILS % (MANUAL) 84 (42-76)
[2017-12-11] MEDS: DOXYCYCLINE 100 MG in IV NS 0.9% 100 ML IV SCH ×2 (09:18→20:24)
[2017-12-11] MEDS: FUROSEMIDE 20 MG TABLET PO SCH (09:19)
[2017-12-11] MEDS: LEVOTHYROXINE SODIUM 50 MCG TABLET PO SCH (09:19)
[2017-12-11] MEDS: PANTOPRAZOLE 40 MG/PACK PACK GT SCH (09:19)
[2017-12-11] MEDS: LEVETIRACETAM (250 MG) 250 MG TABLET PO SCH ×2 (09:19→16:43)
[2017-12-11] MEDS: NEOMY SULF/BACITRAC ZN/POLY 15 GM TUBE TP SCH ×2 (09:20→16:45)
[2017-12-11] MEDS: IV NS 0.9% 1,000 ML IV PRN (12:00)
[2017-12-11] MEDS: ALBUMIN 25% 25 GM in PREMIX 1 EA IV SCH ×5 (15:34→19:00)
[2017-12-11] MEDS: ACYCLOVIR 200 MG CAPSULE PO SCH (16:42)
[2017-12-11] MEDS: LACTOBACILLUS RHAMNOSUS GG 1 EACH CAP.SPRINK GT SCH (16:43)
[2017-12-11] MEDS: ACYCLOVIR 5% CREAM 5 GM TUBE TP SCH (16:43)
[2017-12-11] MEDS: SIMVASTATIN 20 MG TABLET PO SCH (17:13)
[2017-12-11] MEDS ORDERED: FUROSEMIDE 40 MG/4 ML VIAL IV ONE (19:30)
[2017-12-11] MEDS: FIBERSOURCE HN 1,000 ML BOTTLE GT PRN (20:25)
[2017-12-11] MEDS: FUROSEMIDE 40 MG/4 ML VIAL IV SCH (21:00)
[2017-12-11] MEDS ORDERED: CHLOROTHIAZIDE IV ONE (23:00)
[2017-12-12] VITALS (10 sets, daily range): BP systolic 97–110; BP diastolic 57–82
[2017-12-12 00:03] LABS: ABG BASE EXCESS 5.6 mmol/L; ABG OXYGEN SATURATION 94.1 % (92.0-98.5); ABG PCO2 40.1 mmHg (35.0-45.0); ABG PH 7.484 (7.350-7.450); ABG PO2 69.7 mmHg (75.0-100.0); AaDO2 241.7 mmHg; COHb 0.7 % (0.5-1.5); MetHb 0.3 % (0.0-1.5); O2Hb 93.2 % (94.0-97.0); PEEP,BG 5 cm H2O; VENT MODE, BG bipap 10/5
[2017-12-12] MEDS ORDERED: DIGOXIN INJ 0.5 MG/2 ML AMPUL IV ONE (00:30)
[2017-12-12] MEDS: METOPROLOL TARTRATE 25 MG TABLET PO SCH ×3 (01:22→17:27)
[2017-12-12] MEDS: METRONIDAZOLE 500MG/ NS 100ML 500 MG in PREMIX 1 EA IV SCH (05:02)
[2017-12-12] MEDS: AZTREONAM 1 G in IV NS 0.9% 100 ML IV SCH ×3 (06:15→21:31)
[2017-12-12 08:07] LABS: BASOPHILS % (AUTO) 0.4 % (0.0-2.0); EOSINOPHILS % (AUTO) 0.4 % (0.0-6.0); HEMATOCRIT 27 % (33-45); HEMOGLOBIN 8.8 g/dL (11.5-14.8); LYMPHOCYTES # (AUTO) 0.7 /CMM (0.8-4.8); LYMPHOCYTES % (AUTO) 7.5 % (20.0-44.0); MEAN CORPUSCULAR HEMOGLOBIN 30 PG (26.0-33.0); MEAN CORPUSCULAR HGB CONC 33 g/dl (31.0-36.0); MEAN CORPUSCULAR VOLUME 91 fL (82-100); MONOCYTES # (AUTO) 0.9 /CMM (0.1-1.30); MONOCYTES % (AUTO) 10.7 % (2.0-12.0); NEUTROPHILS # (AUTO) 7.1 /CMM (1.8-8.9); RDW COEFFICIENT OF VARIATION 17.1 (11.5-15.0); WHITE BLOOD COUNT (AUTO) 8.7 K/uL (4.3-11.0)
[2017-12-12 08:12] LABS: CALCIUM, SERUM 8.6 mg/dL (8.5-10.1); CARBON DIOXIDE 28 mmol/L (21-32); CHLORIDE 104 mmol/L (98-107); CREATININE 0.7 mg/dL (0.6-1.3); GLUCOSE 113 mg/dL (74-106); MAGNESIUM 1.9 mg/dL (1.8-2.4); PHOSPHORUS 2.3 mg/dL (2.5-4.9); POTASSIUM 3.6 mmol/L (3.5-5.1); SODIUM SERUM 141 mmol/L (136-145); UREA NITROGEN, BLOOD 24 mg/dL (7-18)
[2017-12-12 08:20] LABS: PLATELET COUNT (AUTO) 7 /CMM (150-450)
[2017-12-12] MEDS: LEVOTHYROXINE SODIUM 50 MCG TABLET PO SCH (08:27)
[2017-12-12] MEDS: PANTOPRAZOLE 40 MG/PACK PACK GT SCH (08:27)
[2017-12-12] MEDS: FUROSEMIDE 40 MG/4 ML VIAL IV SCH ×6 (08:27→22:02)
[2017-12-12] MEDS: LEVETIRACETAM (250 MG) 250 MG TABLET PO SCH ×2 (08:28→17:24)
[2017-12-12] MEDS: DOXYCYCLINE 100 MG in IV NS 0.9% 100 ML IV SCH (08:28)
[2017-12-12] MEDS: LACTOBACILLUS RHAMNOSUS GG 1 EACH CAP.SPRINK GT SCH ×2 (08:29→17:23)
[2017-12-12] MEDS: ACYCLOVIR 200 MG CAPSULE PO SCH ×3 (08:29→17:23)
[2017-12-12] MEDS: ACYCLOVIR 5% CREAM 5 GM TUBE TP SCH ×2 (08:30→21:35)
[2017-12-12] MEDS: NEOMY SULF/BACITRAC ZN/POLY 15 GM TUBE TP SCH ×2 (08:30→17:28)
[2017-12-12 08:36] LABS: FERRITIN 137 ng/mL (8-388)
[2017-12-12 08:40] LABS: IRON, SERUM 25 ug/dl (50-175); TOTAL IRON BINDING CAPACITY 158 ug/dl (250-450)
[2017-12-12] MEDS: Z GUARD REMEDY 2 OZ OINT TP PRN (09:05)
[2017-12-12 09:43] LABS: INR 1.1 (0.87-1.13)
[2017-12-12 10:07] LABS: D-DIMER 5.5 mg/L(FEU (0.17-0.50)
[2017-12-12 11:39] LABS: NEUTROPHILS % (MANUAL) 83 (42-76)
[2017-12-12 11:40] LABS: EOSINOPHILS % (MANUAL) 2 % (0-4); LYMPHOCYTES % (MANUAL) 7 % (16-48); MONOCYTES % (MANUAL) 8 % (0-11.0)
[2017-12-12] MEDS: METRONIDAZOLE 500 MG TABLET GT SCH ×2 (13:00→21:35)
[2017-12-12] MEDS ORDERED: NEUTRA PHOS 1 POWD.PACKET GT ONE (13:30)
[2017-12-12] MEDS: SIMVASTATIN 20 MG TABLET PO SCH (17:24)
[2017-12-12] MEDS ORDERED: methylPREDNISolone SOD SUCC 125 MG/2ML VIAL IV ONE (21:00)
[2017-12-12] MEDS: DOXYCYCLINE HYCLATE (100 MG) 100 MG TABLET GT SCH (21:34)
[2017-12-13] VITALS (9 sets, daily range): BP systolic 108–142; BP diastolic 73–94
[2017-12-13] MEDS: METOPROLOL TARTRATE 25 MG TABLET PO SCH ×3 (00:18→16:31)
[2017-12-13] MEDS: ALBUTEROL FS 2.5 MG/0.5 ML VIAL.NEB NEB PRN (04:59)
[2017-12-13] MEDS: IPRATROPIUM NEB FS 0.5 MG/2.5 ML AMPUL.NEB NEB PRN (04:59)
[2017-12-13] MEDS: METRONIDAZOLE 500 MG TABLET GT SCH ×2 (05:07→12:32)
[2017-12-13] MEDS: AZTREONAM 1 G in IV NS 0.9% 100 ML IV SCH ×2 (05:08→13:28)
[2017-12-13] MEDS: FIBERSOURCE HN 1,000 ML BOTTLE GT PRN (05:32)
[2017-12-13 06:43] LABS: HEMATOCRIT 27 % (33-45); HEMOGLOBIN 8.9 g/dL (11.5-14.8); LYMPHOCYTES # (AUTO) 0.3 /CMM (0.8-4.8); LYMPHOCYTES % (AUTO) 3.3 % (20.0-44.0); MEAN CORPUSCULAR HEMOGLOBIN 30 PG (26.0-33.0); MEAN CORPUSCULAR HGB CONC 33 g/dl (31.0-36.0); MEAN CORPUSCULAR VOLUME 91 fL (82-100); MONOCYTES # (AUTO) 0.1 /CMM (0.1-1.30); MONOCYTES % (AUTO) 1.3 % (2.0-12.0); NEUTROPHILS # (AUTO) 8.4 /CMM (1.8-8.9); NEUTROPHILS % (AUTO) 95.4 % (43.0-81.0); RDW COEFFICIENT OF VARIATION 17.3 (11.5-15.0); RED BLOOD CELL COUNT(AUTO) 2.92 MIL/uL (4.0-5.2); WHITE BLOOD COUNT (AUTO) 8.8 K/uL (4.3-11.0)
[2017-12-13 06:45] LABS: ALANINE AMINOTRANSFERASE 20 U/L (12-78); ALBUMIN 2.6 g/dL (3.4-5.0); ALKALINE PHOSPHATASE 92 U/L (46-116); ASPARTATE AMINOTRANSFERASE 36 U/L (15-37); BILIRUBIN,TOTAL 0.8 mg/dL (0.2-1.0); CALCIUM, SERUM 8.7 mg/dL (8.5-10.1); CARBON DIOXIDE 31 mmol/L (21-32); CHLORIDE 103 mmol/L (98-107); CREATININE 0.9 mg/dL (0.6-1.3); GLUCOSE 168 mg/dL (74-106); MAGNESIUM 1.7 mg/dL (1.8-2.4); PHOSPHORUS 3.3 mg/dL (2.5-4.9); POTASSIUM 3.4 mmol/L (3.5-5.1); SODIUM SERUM 144 mmol/L (136-145); UREA NITROGEN, BLOOD 28 mg/dL (7-18)
[2017-12-13 07:10] LABS: PLATELET COUNT (AUTO) 24 /CMM (150-450)
[2017-12-13] MEDS: LACTOBACILLUS RHAMNOSUS GG 1 EACH CAP.SPRINK GT SCH ×2 (08:05→16:31)
[2017-12-13] MEDS: PANTOPRAZOLE 40 MG/PACK PACK GT SCH (08:05)
[2017-12-13] MEDS: DOXYCYCLINE HYCLATE (100 MG) 100 MG TABLET GT SCH (08:05)
[2017-12-13] MEDS: ACYCLOVIR 200 MG CAPSULE PO SCH ×3 (08:06→16:31)
[2017-12-13] MEDS: FUROSEMIDE 40 MG/4 ML VIAL IV SCH (08:06)
[2017-12-13] MEDS: LEVETIRACETAM (250 MG) 250 MG TABLET PO SCH ×2 (08:06→16:31)
[2017-12-13] MEDS: LEVOTHYROXINE SODIUM 50 MCG TABLET PO SCH (08:06)
[2017-12-13] MEDS: NEOMY SULF/BACITRAC ZN/POLY 15 GM TUBE TP SCH ×2 (08:07→16:32)
[2017-12-13] MEDS: ACYCLOVIR 5% CREAM 5 GM TUBE TP SCH ×2 (08:08→21:08)
[2017-12-13 08:14] LABS: *SPE A/G RATIO 1.1 (0.7-1.7); *SPE ALBUMIN 2.6 g/dL (2.9-4.4); *SPE ALPHA-1-GLOBULIN 0.3 g/dL (0.0-0.4); *SPE ALPHA-2-GLOBULIN 0.6 g/dL (0.4-1.0); *SPE BETA GLOBULIN 0.5 g/dL (0.7-1.3); *SPE GLOBULIN, TOTAL 2.4 g/dL (2.2-3.9); *SPE M-SPIKE Not Observed g/dL (Not Observed); *SPEGAMMA GLOBULIN 0.9 g/dL (0.4-1.8); IMMUNOGLOBULIN A, SERUM 141 mg/dL (64-422); IMMUNOGLOBULIN G, SERUM 714 mg/dL (700-1600); IMMUNOGLOBULIN M, SERUM 136 mg/dL (26-217)
[2017-12-13 09:04] LABS: INR 1.21 (0.87-1.13)
[2017-12-13 09:05] LABS: D-DIMER 11.28 mg/L(FEU (0.17-0.50)
[2017-12-13 09:35] LABS: LYMPHOCYTES % (MANUAL) 5 % (16-48); MONOCYTES % (MANUAL) 1 % (0-11.0); NEUTROPHILS % (MANUAL) 94 (42-76)
[2017-12-13] MEDS ORDERED: POTASSIUM CL. PREMIX PERIPHER. 50 ML IV SCH (10:30)
[2017-12-13] MEDS ORDERED: BUMETANIDE INJ 8 MG in IV NS 0.9% 48 ML IV ONE (11:00)
[2017-12-13] MEDS: Magnesium 1GM/D5W 100ML PREMIX 100 ML IV SCH ×2 (11:38→12:28)
[2017-12-13] MEDS: POTASSIUM CL. PREMIX PERIPHER. 50 ML IV SCH ×4 (12:51→15:20)
[2017-12-14] VITALS: BP 110/82
[2017-12-14] MEDS: METOPROLOL TARTRATE 25 MG TABLET PO SCH ×3 (01:11→16:13)
[2017-12-14 04:00] VITALS: BP 111/85
[2017-12-14 06:58] LABS: HEMATOCRIT 28 % (33-45); HEMOGLOBIN 9.3 g/dL (11.5-14.8); LYMPHOCYTES # (AUTO) 0.7 /CMM (0.8-4.8); LYMPHOCYTES % (AUTO) 7.3 % (20.0-44.0); MEAN CORPUSCULAR HEMOGLOBIN 30 PG (26.0-33.0); MEAN CORPUSCULAR HGB CONC 33 g/dl (31.0-36.0); MEAN CORPUSCULAR VOLUME 91 fL (82-100); MONOCYTES # (AUTO) 0.9 /CMM (0.1-1.30); MONOCYTES % (AUTO) 10.1 % (2.0-12.0); NEUTROPHILS # (AUTO) 7.5 /CMM (1.8-8.9); NEUTROPHILS % (AUTO) 82.6 % (43.0-81.0)
[2017-12-14 07:20] LABS: ALANINE AMINOTRANSFERASE 18 U/L (12-78); ALBUMIN 2.4 g/dL (3.4-5.0); ALKALINE PHOSPHATASE 94 U/L (46-116); ASPARTATE AMINOTRANSFERASE 27 U/L (15-37); BILIRUBIN,TOTAL 0.6 mg/dL (0.2-1.0); CALCIUM, SERUM 8.9 mg/dL (8.5-10.1); CARBON DIOXIDE 35 mmol/L (21-32); CHLORIDE 104 mmol/L (98-107); CREATININE 0.9 mg/dL (0.6-1.3); GLUCOSE 110 mg/dL (74-106); MAGNESIUM 2.1 mg/dL (1.8-2.4); PHOSPHORUS 2.6 mg/dL (2.5-4.9); POTASSIUM 3.2 mmol/L (3.5-5.1); SODIUM SERUM 145 mmol/L (136-145); TOTAL PROTEIN, SERUM 5.9 g/dL (6.4-8.2); UREA NITROGEN, BLOOD 33 mg/dL (7-18)
[2017-12-14 07:22] LABS: PLATELET COUNT (AUTO) 26 /CMM (150-450)
[2017-12-14 08:00] VITALS: BP 112/70
[2017-12-14] MEDS: PANTOPRAZOLE 40 MG/PACK PACK GT SCH (08:03)
[2017-12-14] MEDS: LEVOTHYROXINE SODIUM 50 MCG TABLET PO SCH (08:03)
[2017-12-14] MEDS: LACTOBACILLUS RHAMNOSUS GG 1 EACH CAP.SPRINK GT SCH ×2 (08:03→16:10)
[2017-12-14] MEDS: ACYCLOVIR 5% CREAM 5 GM TUBE TP SCH ×2 (08:04→22:23)
[2017-12-14] MEDS: LEVETIRACETAM (250 MG) 250 MG TABLET PO SCH ×2 (08:04→16:10)
[2017-12-14] MEDS: NEOMY SULF/BACITRAC ZN/POLY 15 GM TUBE TP SCH ×2 (08:04→16:18)
[2017-12-14] MEDS: ACYCLOVIR 200 MG CAPSULE PO SCH ×3 (08:04→16:10)
[2017-12-14 08:22] LABS: INR 1.16 (0.87-1.13)
[2017-12-14 09:27] LABS: D-DIMER 4.64 mg/L(FEU (0.17-0.50)
[2017-12-14 09:48] LABS: LYMPHOCYTES % (MANUAL) 8 % (16-48); NEUTROPHILS % (MANUAL) 86 (42-76)
[2017-12-14 09:49] LABS: MONOCYTES % (MANUAL) 6 % (0-11.0)
[2017-12-14] MEDS ORDERED: POTASSIUM CHLORIDE 20 MEQ TAB.PRT.SR PO SCH (10:00)
[2017-12-14] MEDS ORDERED: POTASSIUM CHLORIDE 20 MEQ POWDER PACKET PO SCH (10:19)
[2017-12-14] MEDS: POTASSIUM CL. PREMIX PERIPHER. 50 ML IV SCH ×6 (11:56→17:35)
[2017-12-14] MEDS ORDERED: BUMETANIDE INJ 8 MG in IV NS 0.9% 48 ML IV ONE (12:00)
[2017-12-14 13:33] VITALS: BP 102/68
[2017-12-14 16:00] VITALS: BP 128/83
[2017-12-14 20:00] VITALS: BP 140/74
[2017-12-15 01:00] VITALS: BP 109/71
[2017-12-15] MEDS: METOPROLOL TARTRATE 25 MG TABLET PO SCH ×3 (01:12→16:23)
[2017-12-15] MEDS ORDERED: FIBERSOURCE HN 1,000 ML BOTTLE GT PRN (03:30)
[2017-12-15 05:00] VITALS: BP 103/69
[2017-12-15 06:38] LABS: EOSINOPHILS # (AUTO) 0.1 /CMM (0.0-0.7); EOSINOPHILS % (AUTO) 0.6 % (0.0-6.0); HEMATOCRIT 29 % (33-45); HEMOGLOBIN 9.6 g/dL (11.5-14.8); LYMPHOCYTES # (AUTO) 1.1 /CMM (0.8-4.8); LYMPHOCYTES % (AUTO) 9.5 % (20.0-44.0); MEAN CORPUSCULAR HEMOGLOBIN 30 PG (26.0-33.0); MEAN CORPUSCULAR HGB CONC 33 g/dl (31.0-36.0); MEAN CORPUSCULAR VOLUME 91 fL (82-100); MONOCYTES % (AUTO) 8.9 % (2.0-12.0); NEUTROPHILS # (AUTO) 9.2 /CMM (1.8-8.9); RDW COEFFICIENT OF VARIATION 17.4 (11.5-15.0); RED BLOOD CELL COUNT(AUTO) 3.16 MIL/uL (4.0-5.2); WHITE BLOOD COUNT (AUTO) 11.3 K/uL (4.3-11.0)
[2017-12-15 06:50] LABS: PLATELET COUNT (AUTO) 38 /CMM (150-450)
[2017-12-15 06:51] LABS: ALANINE AMINOTRANSFERASE 24 U/L (12-78); ALBUMIN 2.4 g/dL (3.4-5.0); ALKALINE PHOSPHATASE 109 U/L (46-116); ASPARTATE AMINOTRANSFERASE 41 U/L (15-37); BILIRUBIN,TOTAL 0.6 mg/dL (0.2-1.0); CALCIUM, SERUM 9.3 mg/dL (8.5-10.1); CARBON DIOXIDE 38 mmol/L (21-32); CHLORIDE 103 mmol/L (98-107); GLUCOSE 124 mg/dL (74-106); MAGNESIUM 2.1 mg/dL (1.8-2.4); POTASSIUM 3.9 mmol/L (3.5-5.1); SODIUM SERUM 144 mmol/L (136-145); TOTAL PROTEIN, SERUM 5.8 g/dL (6.4-8.2); UREA NITROGEN, BLOOD 39 mg/dL (7-18)
[2017-12-15 08:34] LABS: BAND % (MANUAL) 1 % (0.0-5.0); EOSINOPHILS % (MANUAL) 1 % (0-4); LYMPHOCYTES % (MANUAL) 5 % (16-48); MONOCYTES % (MANUAL) 9 % (0-11.0); NEUTROPHILS % (MANUAL) 84 (42-76)
[2017-12-15] MEDS: ACYCLOVIR 200 MG CAPSULE PO SCH ×3 (08:55→16:37)
[2017-12-15] MEDS: PANTOPRAZOLE 40 MG/PACK PACK GT SCH (08:55)
[2017-12-15] MEDS: LACTOBACILLUS RHAMNOSUS GG 1 EACH CAP.SPRINK GT SCH ×2 (08:55→16:37)
[2017-12-15] MEDS: LEVETIRACETAM (250 MG) 250 MG TABLET PO SCH ×2 (08:56→16:37)
[2017-12-15] MEDS: LEVOTHYROXINE SODIUM 50 MCG TABLET PO SCH (08:56)
[2017-12-15] MEDS: ACYCLOVIR 5% CREAM 5 GM TUBE TP SCH (08:57)
[2017-12-15] MEDS: NEOMY SULF/BACITRAC ZN/POLY 15 GM TUBE TP SCH ×2 (08:57→16:37)
[2017-12-15] MEDS ORDERED: BUMETANIDE INJ 8 MG in IV NS 0.9% 48 ML IV ONE (10:00)
[2017-12-15] MEDS: POTASSIUM CHLORIDE 20 MEQ TAB.PRT.SR PO SCH ×3 (10:41→12:58)
[2017-12-15] MEDS ORDERED: Fibersource Hn GT (11:52)
[2017-12-15] MEDS ORDERED: ALBU2.5V13 NEB (11:52)
[2017-12-15] MEDS ORDERED: NEOM15OI3 TP (11:52)
[2017-12-15] MEDS ORDERED: PANT40SU2 GT (11:52)
[2017-12-15] MEDS ORDERED: METO25TA20 PO (11:52)
[2017-12-15] MEDS ORDERED: ACYC200C PO (11:52)
[2017-12-15] MEDS ORDERED: LACT1CAP72 GT (11:52)
[2017-12-15 13:00] VITALS: BP 118/82
[2017-12-15 16:23] VITALS: BP 102/68
== END 2017-12-15 18:40 | DRG 871 ==
LOC: ER 21:29 → SAOV 11-26 00:20 → ICU 11-26 02:25 → TELE 11-27 09:17 → TELE-TD 11-28 12:08 → TELE1 11-28 13:44 → ICU 12-04 14:18 → TELE-TD 12-07 17:46 → TELE1 12-08 10:07 → MEDSG1 12-14 12:14
PROVIDERS: ADMIT Nurse Practitioner Acute Care; ATTEND Nurse Practitioner Acute Care
PROC: 5A09557 Assistance with Respiratory Ventilation, Greater than 96 Consecutive Hours, Continuous Positive Airway Pressure (ICD-10-PCS; principal; 2017-11-26)
PROC: 3E0G76Z Introduction of Nutritional Substance into Upper GI, Via Natural or Artificial Opening (ICD-10-PCS; 2017-11-28)
PROC: 0W3P8ZZ Control Bleeding in Gastrointestinal Tract, Via Natural or Artificial Opening Endoscopic (ICD-10-PCS; 2017-11-28)
PROC: 0DB68ZX Excision of Stomach, Via Natural or Artificial Opening Endoscopic, Diagnostic (ICD-10-PCS; 2017-11-28)
PROC: 0DH63UZ Insertion of Feeding Device into Stomach, Percutaneous Approach (ICD-10-PCS; 2017-11-28 09:30)
PROC: 05H633Z Insertion of Infusion Device into Left Subclavian Vein, Percutaneous Approach (ICD-10-PCS; 2017-12-08)
PROC: B547ZZA Ultrasonography of Left Subclavian Vein, Guidance (ICD-10-PCS; 2017-12-08)
PROC: 30253R1 (ICD-10-PCS; 2017-12-11)
DX: A41.9 Sepsis, unspecified organism (principal); I50.33 Acute on chronic diastolic (congestive) heart failure; I21.A1 Myocardial infarction type 2; N17.0 Acute kidney failure with tubular necrosis; J69.0 Pneumonitis due to inhalation of food and vomit; G93.41 Metabolic encephalopathy; J96.01 Acute respiratory failure with hypoxia; J96.02 Acute respiratory failure with hypercapnia; R13.10 Dysphagia, unspecified; R53.2 Functional quadriplegia; E44.0 Moderate protein-calorie malnutrition; I69.351 Hemiplegia and hemiparesis following cerebral infarction affecting right dominant side; E87.2 Acidosis; N39.0 Urinary tract infection, site not specified; D68.59 Other primary thrombophilia; E87.1 Hypo-osmolality and hyponatremia; D61.818 Other pancytopenia; I48.2 Chronic atrial fibrillation; R65.20 Severe sepsis without septic shock; Z95.1 Presence of aortocoronary bypass graft; Z90.710 Acquired absence of both cervix and uterus; Z87.891 Personal history of nicotine dependence; Z87.11 Personal history of peptic ulcer disease; Z85.42 Personal history of malignant neoplasm of other parts of uterus; Z82.3 Family history of stroke; Z79.899 Other long term (current) drug therapy; Z79.82 Long term (current) use of aspirin; Z88.1 Allergy status to other antibiotic agents; Z88.8 Allergy status to other drugs, medicaments and biological substances; Z82.49 Family history of ischemic heart disease and other diseases of the circulatory system; Z98.890 Other specified postprocedural states; E03.9 Hypothyroidism, unspecified; E78.5 Hyperlipidemia, unspecified; I25.2 Old myocardial infarction; I25.10 Atherosclerotic heart disease of native coronary artery without angina pectoris; Z66 Do not resuscitate; J40 Bronchitis, not specified as acute or chronic; B96.20 Unspecified Escherichia coli [E. coli] as the cause of diseases classified elsewhere; R73.9 Hyperglycemia, unspecified; F03.90 Unspecified dementia, unspecified severity, without behavioral disturbance, psychotic disturbance, mood disturbance, and anxiety; I11.0 Hypertensive heart disease with heart failure; L89.819 Pressure ulcer of head, unspecified stage; S30.810A Abrasion of lower back and pelvis, initial encounter; S30.814A Abrasion of vagina and vulva, initial encounter; X58.XXXA Exposure to other specified factors, initial encounter; Y92.9 Unspecified place or not applicable; D69.59 Other secondary thrombocytopenia; M85.9 Disorder of bone density and structure, unspecified; I69.320 Aphasia following cerebral infarction; K29.70 Gastritis, unspecified, without bleeding; D64.9 Anemia, unspecified
CPT/HCPCS: 36415; 36569; 36600; 43246; 71045-TC; 74018; 80048-TC; 80053-TC; 80076-TC; 80202-TC; 81000-TC; 82040-TC; 82728-TC; 82746; 82784; 82803-TC; 82962-TC; 83010; 83540-TC; 83605-TC; 83615-TC; 83735-TC; 83880; 83935-TC; 84100-TC; 84155; 84165; 84484-TC; 85025-TC; 85045-TC; 85385-TC; 85396; 85610-TC; 85730-TC; 86334; 86850-TC; 86880-TC; 87040-TC; 87081-TC; 87086-TC; 87186-TC; 88305-TC; 88313-TC; 88342; 92611-TC; 93307-TC; 94760-TC; 94762-TC; 94799-TC; 99082-TC; A4216; A4606; A6253; A6402; A6403; A7526; J0696; J1160; J1205; J1650; J1940; J2060; J2175; J2185; J2270; J2543; J2704; J2930; J3370; J3475; J3480; J3490; J7030; J7040; J7042; J7050; J7060; J8597; P9016-BL; P9034-BL; P9047; Q9963; Z7610

== ENCOUNTER 2017-12-27 19:47 | Inpatient (IN) | payer MEDICARE, BC ==
[~2017-12-27] VITALS: Ht 165.1 cm; Wt 58.1 kg
[~2017-12-27 19:47] MED LIST changes: +ACYC200C PO; +ALBU2.5V13 NEB; -ASPI-495 PO; -CLOP75TA15 PO; +Fibersource Hn GT; +LACT1CAP72 GT; +METO25TA20 PO; +NEOM15OI3 TP; +PANT40SU2 GT; -SOTA80TA PO
--- NOTE | 2017-12-27 20:00 | NUR ---
BIBPA FROM [facility] XRAY WAS DONE EARLIER AND SHOWS FOR POSSIBLE PNA. FAMILY AT BS. PT AWAKE, NONVERBAL. UNLABORED BREATHING NOTED. PER FAMILY PT IS DNR/DNI. SEEN BY MD FOR EVAL. SAFETY AND COMFORT MEASURES PROVIDED. WILL MONITOR.
--- NOTE | 2017-12-27 20:50 | NUR ---
IV ACCESS STARTED. BLOOD AND CULTURES DRAWN FOR LABS.
--- NOTE | 2017-12-27 21:00 | NUR ---
PT CAME WITH FC- DISCONTINUED. NEW FC INSERTED. MINIMAL URINE OUTPUT NOTED.
[2017-12-27 21:04] LABS: CALCIUM, SERUM 8.8 mg/dL (8.5-10.1); CARBON DIOXIDE 33 mmol/L (21-32); CHLORIDE 100 mmol/L (98-107); CREATININE 0.8 mg/dL (0.6-1.3); GLUCOSE 103 mg/dL (74-106); POTASSIUM 4.6 mmol/L (3.5-5.1); SODIUM SERUM 139 mmol/L (136-145); UREA NITROGEN, BLOOD 36 mg/dL (7-18)
[2017-12-27 21:05] LABS: INR 0.96 (0.85-1.15)
[2017-12-27 21:09] LABS: ALANINE AMINOTRANSFERASE 19 U/L (12-78); ALBUMIN 2.3 g/dL (3.4-5.0); ALKALINE PHOSPHATASE 148 U/L (46-116); ASPARTATE AMINOTRANSFERASE 55 U/L (15-37); BILIRUBIN,DIRECT 0.3 mg/dL (0.0-0.2); BILIRUBIN,TOTAL 0.6 mg/dL (0.2-1.0); TOTAL PROTEIN, SERUM 6.4 g/dL (6.4-8.2)
[2017-12-27 21:13] LABS: TROPONIN I 7.276 ng/mL (0.00-0.056)
--- NOTE | 2017-12-27 21:24 | NUR ---
PT IS ASSIGNED TO [id number].
[2017-12-27] MEDS ORDERED: IV NS 0.9% 1,000 ML BAG IV ONE (21:30)
[2017-12-27] MEDS ORDERED: VANCOMYCIN 1 GM in IV D5W 250 ML IV ONE (21:30)
[2017-12-27] MEDS ORDERED: ASPIRIN 325 MG TABLET GT ONE (21:30)
[2017-12-27] MEDS ORDERED: CEFEPIME 1 GM in IV D5W 50 ML IV ONE (21:30)
[2017-12-27 21:32] LABS: EOSINOPHILS % (AUTO) 0.6 % (0.0-6.0); HEMATOCRIT 27 % (33-45); HEMOGLOBIN 8.9 g/dL (11.5-14.8); LYMPHOCYTES # (AUTO) 0.9 /CMM (0.8-4.8); LYMPHOCYTES % (AUTO) 9.7 % (20.0-44.0); MEAN CORPUSCULAR HGB CONC 34 g/dl (31.0-36.0); MEAN CORPUSCULAR VOLUME 94 fL (82-100); MONOCYTES # (AUTO) 0.8 /CMM (0.1-1.30); MONOCYTES % (AUTO) 8.9 % (2.0-12.0); NEUTROPHILS # (AUTO) 7.4 /CMM (1.8-8.9); NEUTROPHILS % (AUTO) 80.8 % (43.0-81.0); RDW COEFFICIENT OF VARIATION 21.7 (11.5-15.0); RED BLOOD CELL COUNT(AUTO) 2.82 MIL/uL (4.0-5.2); WHITE BLOOD COUNT (AUTO) 9.1 K/uL (4.3-11.0)
[2017-12-27] MEDS ORDERED: IV D5/0.45 NACL 1,000 ML IV PRN (21:35)
[2017-12-27 21:38] LABS: PLATELET COUNT (AUTO) 17 /CMM (150-450)
[2017-12-27 21:40] LABS: BAND % (MANUAL) 19 % (0.0-5.0); LYMPHOCYTES % (MANUAL) 14 % (16-48); MONOCYTES % (MANUAL) 11 % (0-11.0); NEUTROPHILS % (MANUAL) 56 (42-76)
--- NOTE | 2017-12-27 21:40 | NUR ---
PT MEDICATED ORDERED.
[2017-12-27 21:51] LABS: APPEARANCE,URINE Cloudy (CLEAR); BILIRUBIN,URINE Negative (NEGATIVE); BLOOD, URINE Large Ery/uL (NEGATIVE); COLOR,URINE Dark (YELLOW); KETONES,URINE Negative (NEGATIVE); LEUKOCYTE ESTERASE ,URINE Small (NEGATIVE); NITRITE, URINE Negative (NEGATIVE); PROTEIN,URINE 30 mg/dl (NEGATIVE); UGLUCOSE Negative (NEGATIVE); UROBILINOGEN,URINE 0.2 EU/dL (0.2)
[2017-12-27] MEDS ORDERED: VANCOMYCIN 1 GM VIAL ONE (21:51)
[2017-12-27] MEDS ORDERED: CEFEPIME 1 GM VIAL ONE (21:51)
[2017-12-27] MEDS ORDERED: ASPIRIN 325 MG TABLET ONE (21:52)
[2017-12-27] MEDS ORDERED: PIPERACILLIN /TAZOBACTAM 3.375 G VIAL IV ONE (21:52)
[2017-12-27] MEDS ORDERED: MAG HYDROX/AL HYDROX/SIMETH 30 ML UDC PO PRN (22:00)
[2017-12-27] MEDS ORDERED: HYDROCODONE/APAP 5/325MG 1 EACH TABLET PO PRN (22:00)
[2017-12-27] MEDS ORDERED: MORPHINE SULFATE INJ 4 MG/ML DISP.SYRIN IV PRN (22:00)
[2017-12-27] MEDS ORDERED: Z GUARD REMEDY 2 OZ OINT TP PRN (22:00)
[2017-12-27] MEDS ORDERED: MAGNESIUM HYDROXIDE 30 ML UDC PO PRN (22:00)
[2017-12-27] MEDS ORDERED: ONDANSETRON HCL/PF 4 MG/2 ML VIAL IVP PRN (22:00)
[2017-12-27 22:03] LABS: BACTERIA,URINE Few /HPF (None Seen); MUCUS,URINE Few /LPF (None Seen); SQUAMOUS EPITHELIAL CELL,UR Few /HPF (None Seen); URINE AMORPHOUS URATE Many /HPF (None Seen); YEAST,URINE Few /HPF (None Seen)
[2017-12-27 22:30] VITALS: BP 105/52
--- NOTE | 2017-12-27 23:00 | NUR ---
RN NOTES RECEIVED PT. FROM ER WITH DX. ACUTE RESPIRATORY FAILURE, PT IS A/OX2-4, G-TUBE IS CLAMPED, F/ C DRAINING CLEAR YELLOW URINE, A-FIB ON TELE MONITOR , HR 99, PT IS WITH HER DAUGHTER AND HER CAREGIVER, ADMISSION INSTRUCTION WAS GIVEN, CALL LIGHT WITHIN REACH, SIDERAILSUPX2 CONTINUE TO MONITOR
[2017-12-28] VITALS: BP_SYST 105; BP_SYST 111; BP_DIAS 52; BP_DIAS 83
[2017-12-28] MEDS ORDERED: PIPERACILLIN /TAZOBACTAM 3.375 G in IV D5W 50 ML IV SCH ×2
--- NOTE | 2017-12-28 02:00 | NUR ---
RN NOTES INFORMED ABIMBOLA HOOPER-ELYSE REGARDING PT IS ON G-TUBE FEEDING. SHE STATED " THAT THEY CAN STRT THE FEEDING IN AM AFTER THE DOCTOR SEE HER
--- NOTE | 2017-12-28 02:00 | NUR ---
RN NOTES ABIMBOLA MILLARD CAME AND UP AND INFORMED HER REGARDING PT. TROPONIN WENT UP TO 8.592 AND LACTIC ACID IS 3.2 BUT PT IS ALREADY RECEIVED ANTIBIOTIC IN ER. ABIMBOLA MILLARD ORDERED CARDIO CONSULY AND LACTIC ACID AGAIN IN AM, ORDER NOTED AND CARRIED OUT
[2017-12-28] MEDS ORDERED: ALBUTEROL FS 2.5 MG/0.5 ML VIAL.NEB NEB PRN (03:00)
[2017-12-28] MEDS ORDERED: BUDESONIDE RESPULE INH 0.25 MG/2 ML AMPUL.NEB IH PRN (03:00)
[2017-12-28 04:00] VITALS: BP 125/73
[2017-12-28] MEDS: METOPROLOL TARTRATE 25 MG TABLET PO SCH ×3 (05:00→19:00)
[2017-12-28 06:26] LABS: BASOPHILS % (AUTO) 0.2 % (0.0-2.0); EOSINOPHILS % (AUTO) 0.3 % (0.0-6.0); HEMATOCRIT 28 % (33-45); HEMOGLOBIN 9.2 g/dL (11.5-14.8); LYMPHOCYTES # (AUTO) 0.9 /CMM (0.8-4.8); LYMPHOCYTES % (AUTO) 10.4 % (20.0-44.0); MEAN CORPUSCULAR HGB CONC 33 g/dl (31.0-36.0); MEAN CORPUSCULAR VOLUME 95 fL (82-100); MONOCYTES # (AUTO) 0.8 /CMM (0.1-1.30); MONOCYTES % (AUTO) 9.3 % (2.0-12.0); NEUTROPHILS # (AUTO) 7.3 /CMM (1.8-8.9); NEUTROPHILS % (AUTO) 79.8 % (43.0-81.0); RDW COEFFICIENT OF VARIATION 21.4 (11.5-15.0); RED BLOOD CELL COUNT(AUTO) 2.95 MIL/uL (4.0-5.2); WHITE BLOOD COUNT (AUTO) 9.1 K/uL (4.3-11.0)
--- NOTE | 2017-12-28 06:26 | NUR ---
RN NOTES SLEEPING BUT AROUSABLE, CAREGIVER AT BEDSIDE, MORNING CARE RENDERED, PT. NEED ATTENDED
[2017-12-28 06:32] LABS: CALCIUM, SERUM 8.1 mg/dL (8.5-10.1); CARBON DIOXIDE 28 mmol/L (21-32); CHLORIDE 101 mmol/L (98-107); CREATININE 0.9 mg/dL (0.6-1.3); GLUCOSE 103 mg/dL (74-106); POTASSIUM 3.9 mmol/L (3.5-5.1); SODIUM SERUM 137 mmol/L (136-145); UREA NITROGEN, BLOOD 32 mg/dL (7-18)
[2017-12-28 06:44] LABS: CHOLESTEROL 68 mg/dL (<200); HDL CHOLESTEROL 35 mg/dL (40-60); LDL 32 mg/dL (0-99); THYROID STIMULATING HORMONE 9.374 uIU/mL (0.358-3.74); TRIGLYCERIDES 91 mg/dL (30-150)
[2017-12-28 06:46] LABS: B-TYPE NATRIURETIC PEPTIDE 16215 PG/ML (0-125); MAGNESIUM 2.1 mg/dL (1.8-2.4); PHOSPHORUS 3.4 mg/dL (2.5-4.9)
[2017-12-28] MEDS ORDERED: Medication Not On Formulary EA (Lansoprazole (Prevacid) 30 MG) PO SCH (07:30)
--- NOTE | 2017-12-28 07:30 | NUR ---
RN OPENING NOTE PT IS A/OX2-4 G-TUBE IS CLAMPED AND IN PLACE. F/ C INTACT. A-FIB ON TELE MONITOR HR 80. PT IS WITH HER CAREGIVER. SAFETY MEASURES IN PLACE. CALL LIGHT WITHIN REACH. WILL CONTINUE TO MONITOR.
[2017-12-28 08:00] VITALS: BP 104/84
[2017-12-28 08:01] LABS: PLATELET COUNT (AUTO) 14 /CMM (150-450)
[2017-12-28] MEDS: NEOMY SULF/BACITRAC ZN/POLY 15 GM TUBE TP SCH ×2 (09:00→16:44)
[2017-12-28] MEDS ORDERED: FIBERSOURCE HN 1,000 ML BOTTLE GT PRN (09:00)
[2017-12-28] MEDS ORDERED: ASPIRIN 325 MG TABLET PO SCH (09:00)
[2017-12-28] MEDS ORDERED: FUROSEMIDE 20 MG TABLET PO SCH (09:00)
[2017-12-28] MEDS: LEVOTHYROXINE SODIUM 50 MCG TABLET PO SCH (09:06)
[2017-12-28] MEDS: ACYCLOVIR 200 MG CAPSULE PO SCH ×3 (09:06→16:44)
[2017-12-28] MEDS: LACTOBACILLUS RHAMNOSUS GG 1 EACH CAP.SPRINK GT SCH ×2 (09:06→16:44)
[2017-12-28] MEDS: LEVETIRACETAM (250 MG) 250 MG TABLET PO SCH ×2 (09:06→16:44)
[2017-12-28] MEDS: PANTOPRAZOLE 40 MG VIAL IV SCH (09:06)
[2017-12-28] MEDS: FUROSEMIDE 40 MG/4 ML VIAL IV SCH ×3 (10:35→16:44)
[2017-12-28] MEDS: POTASSIUM CHLORIDE 20 MEQ TAB.PRT.SR PO SCH ×3 (10:35→12:49)
[2017-12-28] MEDS ORDERED: FEE PK DOSING 1 MIN EA MC ONE (11:21)
[2017-12-28 12:20] LABS: BAND % (MANUAL) 2 % (0.0-5.0); LYMPHOCYTES % (MANUAL) 6 % (16-48); NEUTROPHILS % (MANUAL) 83 (42-76)
[2017-12-28 12:21] LABS: MONOCYTES % (MANUAL) 9 % (0-11.0)
[2017-12-28] MEDS: LEVOFLOXACIN 750 MG /D5W 150ML 750 MG in PREMIX 1 EA IV SCH (15:45)
[2017-12-28 16:00] VITALS: BP 114/70
[2017-12-28] MEDS: VANCOMYCIN 0.75 GM in IV D5W 250 ML IV SCH (16:41)
[2017-12-28] MEDS ORDERED: POTASSIUM CHLORIDE 10 MEQ TABLET.SA PO SCH (18:00)
[2017-12-28] MEDS ORDERED: SIMVASTATIN 20 MG TABLET PO SCH (18:00)
--- NOTE | 2017-12-28 19:29 | NUR ---
RN CLOSING NOTE PT IN BED RESTING. NO S/S OF RESP DISTRESS OR SOB. NO C/O PAIN. GT FEEDING OF FIBERSOURCE STARTED AT 25 ML/HR. SAFETY MEASURES IN PLACE, CALL LIGHT IN REACH. WILL ENDORSE TO YOUTH SUPPORT WORKER FOR JONAS.
--- NOTE | 2017-12-28 19:35 | NUR ---
RN NOTES RECEIVED PT. AWAKE ON BED, A/OX2, CAREGIVER AT BEDSIDE FIBERSOURCE RUNNING @ 25ML/HR, NO RESIDUAL NOTED, F/C DRAINING CLEAR YELLOW URINE, PT ON FACE MASK SATTING @ 99%, CALL LIGHT WITHIN REACH, SIDERALSUPX2, CONTINUE TO MONITOR
[2017-12-28 20:00] VITALS: BP 136/79
--- NOTE | 2017-12-28 20:30 | NUR ---
RN NOTES PUT PT BACK ON NASAL CANNULA, PT SATTING 99% ON 3L
[2017-12-29] MEDS: METOPROLOL TARTRATE 25 MG TABLET PO SCH ×2 (03:00→11:00)
--- NOTE | 2017-12-29 06:59 | NUR ---
RN NOTES AWAKE, F/C DRAINING CLEAR YELLOW URINE, G-TUBE FEEDING IN PLACE, NO RESIDUAL NOTED, CAREGIVER AT BEDSIDE, MORNING CARE RENDERED, PT NEEDS ATTENDED
--- NOTE | 2017-12-29 07:30 | NUR ---
RN OPENING NOTE PT IS A/OX1, NONVERBAL. NO S/S OF SOB OR LABORED BREATHING. PT DOES NOT APPEAR TO BE IN PAIN. G-TUBE IS IN PLACE WITH FEEDING OF FIBERSOURCE AT 25ML/HR. F/ C INTACT AND IN PLACE.CAREGIVER AT BEDSIDE. SAFETY MEASURES IN PLACE. CALL LIGHT WITHIN REACH. WILL CONTINUE TO MONITOR.
[2017-12-29 07:40] LABS: BASOPHILS % (AUTO) 0.2 % (0.0-2.0); EOSINOPHILS % (AUTO) 1.2 % (0.0-6.0); HEMATOCRIT 26 % (33-45); HEMOGLOBIN 8.4 g/dL (11.5-14.8); LYMPHOCYTES # (AUTO) 0.7 /CMM (0.8-4.8); MEAN CORPUSCULAR HGB CONC 33 g/dl (31.0-36.0); MEAN CORPUSCULAR VOLUME 93 fL (82-100); MONOCYTES # (AUTO) 0.8 /CMM (0.1-1.30); MONOCYTES % (AUTO) 11.3 % (2.0-12.0); NEUTROPHILS # (AUTO) 5.2 /CMM (1.8-8.9); NEUTROPHILS % (AUTO) 77.3 % (43.0-81.0); RDW COEFFICIENT OF VARIATION 21.7 (11.5-15.0); RED BLOOD CELL COUNT(AUTO) 2.79 MIL/uL (4.0-5.2); WHITE BLOOD COUNT (AUTO) 6.7 K/uL (4.3-11.0)
[2017-12-29 07:49] LABS: PLATELET COUNT (AUTO) 27 /CMM (150-450)
[2017-12-29 08:00] VITALS: BP 97/62
--- NOTE | 2017-12-29 08:02 | NUR ---
WOUND CARE CONSULT WOUND CARE RECEIVED CONSULT FOR SACRAL UNSTAGEABLE. WOUND CARE WILL DEFER CONSULT AND ALL TREATMENT PLANS TO SURGICAL TEAM THEY ARE CURRENTLY FOLLOWING. PATIENT WITH BRITNI AT 12, ALL PRESSURE ULCER PREVENTION MEASURES NOTED TO BE IN PLACE.
[2017-12-29] MEDS: LEVETIRACETAM (250 MG) 250 MG TABLET PO SCH (08:48)
[2017-12-29] MEDS: ACYCLOVIR 200 MG CAPSULE PO SCH ×2 (08:48→13:52)
[2017-12-29] MEDS: PANTOPRAZOLE 40 MG VIAL IV SCH (08:49)
[2017-12-29] MEDS: LACTOBACILLUS RHAMNOSUS GG 1 EACH CAP.SPRINK GT SCH ×2 (08:49→17:18)
[2017-12-29] MEDS: NEOMY SULF/BACITRAC ZN/POLY 15 GM TUBE TP SCH ×4 (08:49→18:00)
[2017-12-29] MEDS: LEVOTHYROXINE SODIUM 50 MCG TABLET PO SCH (08:49)
[2017-12-29 09:16] LABS: ALANINE AMINOTRANSFERASE 16 U/L (12-78); ALBUMIN 2.1 g/dL (3.4-5.0); ALKALINE PHOSPHATASE 117 U/L (46-116); ASPARTATE AMINOTRANSFERASE 41 U/L (15-37); BILIRUBIN,TOTAL 0.5 mg/dL (0.2-1.0); CALCIUM, SERUM 8.6 mg/dL (8.5-10.1); CARBON DIOXIDE 27 mmol/L (21-32); CHLORIDE 102 mmol/L (98-107); CREATININE 0.9 mg/dL (0.6-1.3); GLUCOSE 95 mg/dL (74-106); MAGNESIUM 1.9 mg/dL (1.8-2.4); PHOSPHORUS 3.2 mg/dL (2.5-4.9); POTASSIUM 4.2 mmol/L (3.5-5.1); SODIUM SERUM 137 mmol/L (136-145); TOTAL PROTEIN, SERUM 5.9 g/dL (6.4-8.2); UREA NITROGEN, BLOOD 31 mg/dL (7-18)
[2017-12-29 10:10] LABS: EOSINOPHILS % (MANUAL) 1 % (0-4); LYMPHOCYTES % (MANUAL) 8 % (16-48); MONOCYTES % (MANUAL) 9 % (0-11.0); NEUTROPHILS % (MANUAL) 82 (42-76)
[2017-12-29 11:13] LABS: TROPONIN I 2.957 ng/mL (0.00-0.056)
[2017-12-29] MEDS: VANCOMYCIN 0.75 GM in IV D5W 250 ML IV SCH (11:49)
[2017-12-29 16:14] VITALS: BP 102/61
[2017-12-29] MEDS ORDERED: POTASSIUM CHLORIDE 10 MEQ TABLET.SA GT SCH (17:11)
[2017-12-29] MEDS: METOPROLOL TARTRATE 25 MG TABLET GT SCH (17:14)
[2017-12-29] MEDS ORDERED: MAG HYDROX/AL HYDROX/SIMETH 30 ML UDC GT PRN (17:14)
[2017-12-29] MEDS ORDERED: MAGNESIUM HYDROXIDE 30 ML UDC GT PRN (17:14)
[2017-12-29] MEDS ORDERED: HYDROCODONE/APAP 5/325MG 1 EACH TABLET GT PRN (17:15)
[2017-12-29] MEDS ORDERED: LEVOTHYROXINE SODIUM 50 MCG TABLET GT SCH (17:15)
[2017-12-29] MEDS ORDERED: SIMVASTATIN 20 MG TABLET GT SCH (17:16)
[2017-12-29] MEDS ORDERED: PHARMACY TO CHANGE PO MEDS TO GT/NG XX PRN (17:30)
--- NOTE | 2017-12-29 18:33 | NUR ---
RN CLOSING NOTE PT IN BED RESTING. NO S/S OF RESP DISTRESS OR SOB. NO C/O PAIN. SITTER AT BEDSIDE. IV ACCESS RESTARTED ON RIGHT HAND 22G, SL. ALL PT NEEDS ANTICIPATED AND MET. SAFETY MEASURES IN PLACE, CALL LIGHT WITHIN REACH. WILL ENDORSE TO CD MIXER HELPER FOR JONAS.
--- NOTE | 2017-12-29 19:30 | NUR ---
MS RN NOTE RECEIVED PATIENT FROM DAY SHIFT, PATIENT IS ALERT AND ORIENTEDX1, CAREGIVER AT BEDSIDE, LOOKS WEAK AND NON-VERBAL. NO S/S OF RESPIRATORY DISTRESS NOTED AT THIS TIME. PALOMINO CATH PRESENT WITH YELLOW CLEAR URINE. IV ON RIGHT HAND IS PATENT AND INTACT, HL ONLY. GT FEEDING FIBERSOURCE @25ML/HR. PATIENT IS DNR/DNI CODE STATUS. SRX2, BED IN LOW POSITION, CALL LIGHT WITHIN REACH, WILL CONTINUE TO MONITOR PATIENT.
[2017-12-29 20:00] VITALS: BP 99/62
[2017-12-29] MEDS: ACETAMINOPHEN 325 MG TABLET PO PRN (21:01)
[2017-12-29] MEDS: LEVETIRACETAM SOL (5 ML) 100 MG/ML UDC GT SCH (21:01)
[2017-12-30] MEDS: METOPROLOL TARTRATE 25 MG TABLET GT SCH ×2 (01:14→09:14)
[2017-12-30] MEDS: ACETAMINOPHEN 325 MG TABLET PO PRN (03:48)
[2017-12-30] MEDS: VANCOMYCIN 0.75 GM in IV D5W 250 ML IV SCH (03:48)
--- NOTE | 2017-12-30 03:58 | NUR ---
MS RN NOTE PATIENT'S CAREGIVER REPORTED THAT PATIENT IS DESATING TO 87%, AND HAS SHALLOW BREATHING PATTERN. ASSESSED THE PATIENT, HR WAS 120'S AND O2 SAT WAS 87%. PUT ON HER SIMPLE MASK @5L/MIN, AFTER 10 MINS, HER O2 SAT WENT UP TO 93-4% WITH HER HR 115. TITRATED O2 DOWN TO 4L/MIN. CALLED RT FOR PRN [place]. SHE MADE AWARE.
[2017-12-30 06:43] LABS: CALCIUM, SERUM 8.4 mg/dL (8.5-10.1); CARBON DIOXIDE 29 mmol/L (21-32); CHLORIDE 102 mmol/L (98-107); GLUCOSE 124 mg/dL (74-106); POTASSIUM 4.3 mmol/L (3.5-5.1); SODIUM SERUM 137 mmol/L (136-145); UREA NITROGEN, BLOOD 30 mg/dL (7-18)
--- NOTE | 2017-12-30 06:54 | NUR ---
MS RN NOTE PATIENT IS RESTING IN BED COMFORTABLY, NO S/S OF RESPIRATORY DISTRESS, O2 SAT 95% WITH NC @ 3L/MIN, NO FACIAL GRIMACE NOTED. ALL DUE MEDS GIVEN, G TUBE FEEDING IS RUNNING, MORNING CARE RENDERED. WILL ENDORSE TO DAY SHIFT NURSE FOR JONAS.
--- NOTE | 2017-12-30 07:28 | NUR ---
MS RN NOTES PATIENT RECEIVED RESTING INSIDE ROOM, SLEEPING, AROUSABLE THROUGH VERBAL AND TACTILE STIMULI. PATIENT NON-VERBAL, OPENS EYES DURING INTERACTION. BREATHING EVEN AND UNLABORED. NO SOB OR ACUTE DISTRESS NOTED, NO FACIAL GRIMACE OR INDICATION OF PAIN NOTED. FC IN PLACE, DRAINING TO GRAVITY WITH YELLOW URINE OUTPUT NOTED. IV SITE ON RIGHT HAND SL, NO SWELLING OR BLEEDING NOTED. GTF CONNECTED WITH FIBERSOURCE AT 25CC/HR. MAINTAINED ASPIRATION PRECAUTION, ELEVATED HOB AT 45. CAREGIVER JANESSA AT BEDSIDE. WILL CONTINUE TO MONITOR. BED LOCKED AND IN LOW POSITION. BILATERAL UPPER SIDE RAILS UP AND LOCKED. CALL LIGHT WITHIN EASY REACH
[2017-12-30 08:00] VITALS: BP 99/65
[2017-12-30 09:14] VITALS: BP 99/65
[2017-12-30] MEDS: LACTOBACILLUS RHAMNOSUS GG 1 EACH CAP.SPRINK GT SCH (09:15)
[2017-12-30] MEDS: PANTOPRAZOLE 40 MG VIAL IV SCH (09:15)
[2017-12-30] MEDS: ACYCLOVIR 200 MG CAPSULE GT SCH ×2 (09:15→12:45)
[2017-12-30] MEDS: LEVETIRACETAM SOL (5 ML) 100 MG/ML UDC GT SCH (09:15)
[2017-12-30] MEDS: NEOMY SULF/BACITRAC ZN/POLY 15 GM TUBE TP SCH (09:17)
[2017-12-30] MEDS: LEVOFLOXACIN 750 MG /D5W 150ML 750 MG in PREMIX 1 EA IV SCH (12:44)
--- NOTE | 2017-12-30 16:10 | NUR ---
MS RN NOTES FSBS OBTAINED WITH RESULT OF 115 MG/DL
--- NOTE | 2017-12-30 16:14 | NUR ---
RN RAPID RESPONSE NOTE CALLED TO EVALUATE PT. PT DNR STATUS. FOUND PT APNEIC, AREFLEXIVE, ASYSTOLIC. PUPILS FIXED AND DILATED. AGONAL RHYTHM IN 20'S PER MONITOR. PRONOUNCED . CAREGIVER WITH PT. FAMILY CONTACTED BY PHONE.
--- NOTE | 2017-12-30 16:20 | NUR ---
MS RN NOTES 1600. SEEN PATIENT INSIDE ROOM, BREATHING SLOWLY, O2 SAT AT 84%. CHANGED NC, INCREASED OXYGEN TO 5L/MIN VIA MASK. GTF OFF. RT MADE AWARE
--- NOTE | 2017-12-30 16:20 | NUR ---
MS RN NOTES 1605, PATIENT O2 SAT DECREASED TO 72%. RT BRIAN PRESENT AT ROOM. PATIENT NOTED WITH APNEA, UNRESPONSIVE TO VERBAL, TACTILE, NOR PAINFUL STIMULI. INITIATED RAPID RESPONSE. OUTSIDE PLANT ENGINEER PRESENT AT PATIENT ROOM, PATIENT WITH CODE STATUS OF DNR/DNI. ASSESSED BY RAPID RESPONSE TEAM AND PATIENT APNEIC, AREFLEXIVE, ASYSTOLIC. PATIENT PRONOUNCED AT 1614 BY OUTSIDE PLANT ENGINEER YESENIA PLASCENCIA. PLACED CALL TO FAMILY AT 1615, NO RESPONSE, LEFT MESSAGE BY VOICEMAIL. REDIALED FAMILY NUMBER AT 1616 AND SPOKE WITH LEIDY MICHAEL, DAUGHTER. MADE AWARE REGARDING PATIENT STATUS AND VERBALIZED UNDERSTANDING, SAID THEY WILL BE COMING TO THE HOSPITAL SOON. PLACED CALL TO KIAH ACOSTA DNP AT 1618 AND MADE AWARE OF PATIENT OF PATIENT STATUS.
--- NOTE | 2017-12-30 16:20 | NUR ---
MS RN NOTES 1600. MOLDER HAND REPORTED PATIENT IS TURNING PALE. SEEN PATIENT INSIDE ROOM.
--- NOTE | 2017-12-30 16:50 | NUR ---
MS RN NOTES PLACED CALL TO [facility] AND SPOKE WITH ATIF, OBTAINED ETA OF 60-90 MINUTES. FAMILY AT BEDSIDE MADE AWARE
--- NOTE | 2017-12-30 17:00 | NUR ---
MS RN NOTES [facility], SPOKE WITH ANGELICA. GAVE REPORT. PER ANGELICA, PATIENT IS NOT A CANDIDATE AND MAY BE RELEASED TO MORTUARY, OBTAINED
--- NOTE | 2017-12-30 17:00 | NUR ---
MS RN NOTES FAMILY PRESENT AT UNIT, LEIDY AND GLORIA (DAUGHTERS) PRESENT AT UNIT, AWARE OF PATIENT EXPIRATION. NO REPORT OF MISSING BELONGINGS. POST-MORTEM CARE PROVIDED. IV AND PALOMINO CATHETER REMOVED. PRESSURE DRESSING PLACED ON IV SITE ON RIGHT HAND.
--- NOTE | 2017-12-30 18:28 | NUR ---
MS RN NOTES ADRIANO KHAN, PRISON LIBRARIAN FROM [facility] PRESENT AT UNIT AT 1800. REPORT GIVEN. PATIENT REMAINS TAKEN BY MORTUARY, LEFT UNIT AT 1815. PATIENT BELONGINGS TAKEN BY FAMILY. NO REPORT OF MISSING BELONGINGS. KIAH ACOSTA DNP MADE AWARE
== END 2017-12-30 18:34 | disposition expired | DRG 871 ==
LOC: ER 19:48 → TELE 22:07 → MED 12-28 11:07
PROVIDERS: ADMIT Internal Medicine; ATTEND Internal Medicine
DX: A41.9 Sepsis, unspecified organism (principal); I21.4 Non-ST elevation (NSTEMI) myocardial infarction; J96.90 Respiratory failure, unspecified, unspecified whether with hypoxia or hypercapnia; I46.9 Cardiac arrest, cause unspecified; G93.40 Encephalopathy, unspecified; E44.0 Moderate protein-calorie malnutrition; I50.33 Acute on chronic diastolic (congestive) heart failure; J90 Pleural effusion, not elsewhere classified; J18.9 Pneumonia, unspecified organism; R53.2 Functional quadriplegia; L89.153 Pressure ulcer of sacral region, stage 3; I69.351 Hemiplegia and hemiparesis following cerebral infarction affecting right dominant side; E87.2 Acidosis; L89.309 Pressure ulcer of unspecified buttock, unspecified stage; I11.0 Hypertensive heart disease with heart failure; Z95.1 Presence of aortocoronary bypass graft; R65.20 Severe sepsis without septic shock; Z66 Do not resuscitate; I25.10 Atherosclerotic heart disease of native coronary artery without angina pectoris; Z85.42 Personal history of malignant neoplasm of other parts of uterus; Z88.1 Allergy status to other antibiotic agents; Z88.8 Allergy status to other drugs, medicaments and biological substances; Z79.899 Other long term (current) drug therapy; R13.10 Dysphagia, unspecified; Z93.1 Gastrostomy status; L89.890 Pressure ulcer of other site, unstageable; F03.90 Unspecified dementia, unspecified severity, without behavioral disturbance, psychotic disturbance, mood disturbance, and anxiety; D69.6 Thrombocytopenia, unspecified; I48.2 Chronic atrial fibrillation; E78.5 Hyperlipidemia, unspecified; I25.2 Old myocardial infarction; K21.9 Gastro-esophageal reflux disease without esophagitis; Z90.710 Acquired absence of both cervix and uterus; Z87.891 Personal history of nicotine dependence; E03.9 Hypothyroidism, unspecified; Z87.11 Personal history of peptic ulcer disease
CPT/HCPCS: 36415; 71045-TC; 80048-TC; 80053-TC; 80061-TC; 80076-TC; 80202-TC; 81000-TC; 82962-TC; 83605-TC; 83735-TC; 83880; 84100-TC; 84443-TC; 84484-TC; 85025-TC; 85730-TC; 87040-TC; 87081-TC; 87086-TC; A4216; A4606; A6402; C9113; J0692; J1940; J1953; J1956; J2543; J3370; J3490; J7030; J7060; Z7610